=== PATIENT | female | born 1955 | race Caucasian/White ===

== ENCOUNTER 2016-10-24 21:28 | Emergency (ER) | payer OTHER ==
[2016-10-24 21:35] VITALS: BMI 14.8
--- NOTE | 2016-10-24 21:57 | DR.GENAD ---
HPI - PCP Primary Care Physician: CHRISTI - HPI Comment HPI Comment: PATIENT RAN OUT OF PORTABLE OXYGEN. INCREASING SOB. SHE IS ALSO BEING COUGHING AND WEAK. NO FEVER. WORSE TONIGHT. HER BROTHER WAS CONCERN AND BROUGHT HER TO ED. HER RELATIVES ARE OUT OF TOWN. SHE LIVES ALONE. - Complaint/Symptoms Chief Complaint Doctors Comments: INCREASING SOB TODAY AFTER RUNNING OUT OF PORTABLE OXYGEN. Chief Complaint:: SOB - Nurses notes reviewed Nurses Notes Review: Yes - Source History Provided: Patient - Mode of Arrival Mode of Arrival: Ambulatory - Timing Onset of Chief Complaint: 10/24/16 Came on: Suddenly - Duration Duration: Constant Duration: Days - Severity Severity: Moderate PMH - PMH Past Medical History: Yes Past Medical History: Angina, Anxiety, COPD, Depression, Dyslipidemia, Hypertension, [place] Past Surgical History: Yes Surgical History: Appendectomy, Ortho Surgery Past Surgical History Comment: LEFTMELOEE - Family History History of Family Medical Conditions: Yes Family Medical History: Coronary Artery Disease, Hypertension - Social History Does patient currently use any type of tobacco product: Yes Have you used tobacco products in the last 12 months: Yes Type of Tobacco Use: Cigarettes Does any household member use tobacco: No Alcohol Use: None Do you use any recreational Drugs:: No Lives With: Family Lives Where: Home - infectious screening In the last 2 months have you had wt loss of >10#?: NO Have you had fever, night sweats or hemotysis?: No Have you traveled outside the country in the last 6 months?: No Isolation: Standard ROS - Review of Systems Constitutional: Weakness, Fatigue, Loss of Appetite. negative: Chills, Diaphoresis, Fever Eyes: negative: Eye Pain, Blurred Vision, Discharge, Photophobia, Diplopia ENTM: Nose Congestion. negative: Ear Pain, Nose Discharge, Throat Pain Respiratoy: Productive Cough, Short of Breath, Wheezing. negative: Hemoptysis Cardiovascular: Chest Pain. negative: Edema, Palpitations, Syncope Gastrointestinal/Abdominal: No Symptoms Reported. negative: Abdominal Pain, Constipation, Diarrhea, Nausea, Vomiting Genitourinary: No Symptoms Reported. negative: Dysuria, Frequency, Hematuria, Pain, Bleeding Neurological: Headache, Weakness, Dizziness Musculoskeletal: Muscle Pain Integumentary: Dryness, Rash (STASIS DERMATITIS) Hematologic/Lymphatic: Easy Bleeding, Easy Bruising Endocrine: No Symptoms Reported All Other Systems: Reviewed and Negative PE - Vital Signs Vitals: Temperature 98 F Pulse Rate [Left] 86 Pulse Rate 101 Respiratory Rate 20 Blood Pressure [Left Arm] 131/66 Blood Pressure [Right Arm] 125/60 Blood Pressure 143/83 O2 Sat by Pulse Oximetry 99 - General Limitations: No Limitations General Appearance: Alert - Head Head Exam: Normal Inspection - Eyes Eye exam: Normal Appearance - ENT ENT Exam: Normal External Ear Exam External Ear Exam: Normal External Inspection TM/Canal Exam: Bilateral Normal Nose Exam: Normal Nose Exam Mouth Exam: Normal Inspection Throat Exam: Normal Inspection - Neck Neck Exam: Normal Inspection - Chest Chest Inspection: Symmetric Chest Wall Rise - Respiratory Respiratory Exam: Accessory Muscle Use, Prolonged Expiratory Phase, Respiratory Distress Respiratory Exam: Bilateral Wheezing, Bilateral Rhonchi, Upper Wheezing, Upper Rhonchi, Lower Wheezing, Lower Rhonchi - Cardiovascular Cardiovascular Exam: Regular Rate, Normal Rhythm, Normal Heart Sounds - Abdominal Exam Abdominal Exam: Normal Bowel Sounds, Soft. negative: Tenderness - Extremities Extremities Exam: Full ROM, Normal Capillary Refill. negative: Tenderness, Calf Tenderness - Back Back Exam: Paraspinal Tenderness - Neurologic Neurological Exam: Alert, Oriented X3, CN II-XII Intact, Normal Gait, Reflexes Normal. negative: Motor Sensory Deficit - Psychiatric Psychiatric Exam: Anxious - Skin Skin Exam: Dry, Diaphoresis MDM - Additional Information Additional Information Obtained From: Family - Differential Diagnosis Differential Diagnosis: ACUTE EXACERBATION OF COPD WITH BRONCHITIS, HYPOXIA, O2 DEPENDENT Course - Treatment Treatment: SEE ORDERS. NEB TREATMENT AND SOLUMEDROL IN ED WITH SUPPLEMENTARY OXYGEN. - Reevaluation 1st: Improved (PATIENT IMPROVING ON OXYGEN AND MEDS IN ED. ) - Education/Counseling Education/Counseling: Patient, Family, Education Educated On: Treatment, Diagnosis ROR - Labs Reviewed Laboratory Results Reviewed?: Yes Result Diagrams: 10/24/16 22:20 10/24/16 22:20 Laboratory: WBC 9.6 X10^3/uL (3.6-10.0) 10/24/16 22:20 RBC 3.43 X10^6/uL (3.5-5.4) L 10/24/16 22:20 Hgb 10.5 g/dL (12.0-16.0) L 10/24/16 22:20 Hct 30.9 % (36.0-47.0) L 10/24/16 22:20 MCV 90.0 fL (80.0-100.0) 10/24/16 22:20 MCH 30.7 pg (27.0-34.0) 10/24/16 22:20 MCHC 34.1 g/dL (33.0-35.0) 10/24/16 22:20 RDW 13.7 % (11.6-16.5) 10/24/16 22:20 Plt Count 276 X10^3/uL (150.0-450.0) 10/24/16 22:20 MPV 7.3 fL (7.4-11.0) L 10/24/16 22:20 Neut % 63.2 % (42.0-75.0) 10/24/16 22: Lymph % 22.5 % (21.0-51.0) 10/24/16 22:20 Sequoyah % 10.0 % (0.0-13.0) 10/24/16 22:20 Eos % 3.7 % (0.9-2.9) H 10/24/16 22:20 Baso % 0.6 % (0.2-1.0) 10/24/16 22:20 Neut # 6.1 x10^3/uL (2.2-4.8) H 10/24/16 22:20 Lymph # 2.2 X10^3/uL (1.3-2.9) 10/24/16 22:20 Sequoyah # 1.0 x10^3/uL (0.3-0.8) H 10/24/16 22:20 Eos # 0.4 x10^3/uL (0.0-0.2) H 10/24/16 22:20 Baso # 0.1 X10^3/uL (0.0-0.1) 10/24/16 22:20 Absolute Nucleated RBC 0.0 /100WBC 10/24/16 22:20 Sodium 143 mmol/L (136-145) 10/24/16 22:20 Corrected Sodium TNP 10/24/16 22:20 Potassium 3.9 mmol/L (3.5-5.1) 10/24/16 22:20 Chloride 104 mmol/L (98-107) 10/24/16 22:20 Carbon Dioxide 38.0 mmol/L (21-32) H 10/24/16 22:20 BUN 8 mg/dL (7-18) 10/24/16 22:20 Creatinine 0.66 mg/dL (0.55-1.02) 10/24/16 22:20 Est GFR (MDRD) Af Amer > 60 (>60) 10/24/16 22:20 Est GFR (MDRD) Non-Af > 60 (>60) 10/24/16 22:20 Glucose 98 mg/dL (65-99) 10/24/16 22:20 Calcium 7.4 mg/dL (8.5-10.1) L 10/24/16 22:20 Corrected Calcium 8.4 mg/dL (8.5-10.1) L 10/24/16 22:20 Total Bilirubin 0.10 mg/dL (0.2-1.0) L 10/24/16 22:20 AST 18 Units/L (15-37) 10/24/16 22:20 ALT 14 Units/L (12-78) 10/24/16 22:20 Alkaline Phosphatase 68 Units/L (46-116) 10/24/16 22:20 Creatine Kinase 39 Units/L (26-192) 10/24/16 22:20 CK-MB (CK-2) 1.4 ng/mL (0-4.0) 10/24/16 22:20 CK/CKMB % Calc 3.6 % (<4) 10/24/16 22:20 Troponin I < 0.02 ng/mL (0-1.5) 10/24/16 22:20 B-Natriuretic Peptide 158 pg/mL (0-79) H 10/24/16 22:20 Total Protein 6.3 g/dL (6.4-8.2) L 10/24/16 22:20 Albumin 2.8 g/dL (3.4-5.0) L 10/24/16 22:20 Globulin 3.5 g/dL (2.5-4.5) 10/24/16 22:20 Albumin/Globulin Ratio 0.8 Ratio (1.1-2.1) L 10/24/16 22:20 - XRAY XRAY Interpreted by: Radiologist XRAY Findings: REPORT DISCUSS WITH PATIENT. - EKG Rhythm: NSR (EKG NOTED.) - Diagnosis Discharge Problem: Acute exacerbation of chronic obstructive pulmonary disease, Bronchitis, Respiratory distress - Discharge Plan Disposition: 01 HOME, SELF-CARE Condition: Stable - Follow ups/Referrals Follow ups/Referrals: JOSAFAT BARRAZA [Primary Care Provider] - 3 days - Instructions Instructions: Shortness of Breath, [id number], Hypoxemia Additional Instructions: return to ed if worse.
[2016-10-24 22:35] LABS: BASOPHILS # (AUTO) 0.1 X10^3/uL (0.0-0.1); BASOPHILS % (AUTO) 0.6 % (0.2-1.0); EOSINOPHILS # (AUTO) 0.4 x10^3/uL (0.0-0.2); EOSINOPHILS % (AUTO) 3.7 % (0.9-2.9); HEMATOCRIT 30.9 % (36.0-47.0); HEMOGLOBIN 10.5 g/dL (12.0-16.0); LYMPHOCYTES # (AUTO) 2.2 X10^3/uL (1.3-2.9); LYMPHOCYTES % (AUTO) 22.5 % (21.0-51.0); MEAN CORPUSCULAR HEMOGLOBIN 30.7 pg (27.0-34.0); MEAN CORPUSCULAR HGB CONC 34.1 g/dL (33.0-35.0); MEAN PLATELET VOLUME 7.3 fL (7.4-11.0); NEUTROPHILS # (AUTO) 6.1 x10^3/uL (2.2-4.8); NEUTROPHILS % (AUTO) 63.2 % (42.0-75.0); PLATELET COUNT 276 X10^3/uL (150.0-450.0); RED BLOOD COUNT 3.43 X10^6/uL (3.5-5.4); RED CELL DISTRIBUTION WIDTH 13.7 % (11.6-16.5); WHITE BLOOD COUNT 9.6 X10^3/uL (3.6-10.0)
[2016-10-24 22:49] LABS: BLOOD UREA NITROGEN 8 mg/dL (7-18); CALCIUM 7.4 mg/dL (8.5-10.1); CHLORIDE 104 mmol/L (98-107); CREATININE 0.66 mg/dL (0.55-1.02); GLUCOSE 98 mg/dL (65-99); SODIUM 143 mmol/L (136-145); TROPONIN I < 0.02 ng/mL (0-1.5); eGFR BLACK RACES > 60 (>60); eGFR NON BLACK RACES > 60 (>60)
[2016-10-24 22:51] LABS: B-TYPE NATRIURETIC PEPTIDE 158 pg/mL (0-79)
[2016-10-24 22:53] LABS: ALANINE AMINOTRANSFERASE 14 Units/L (12-78); ALBUMIN 2.8 g/dL (3.4-5.0); ALKALINE PHOSPHATASE 68 Units/L (46-116); ASPARTATE AMINO TRANSFERASE 18 Units/L (15-37); CKMB % 3.6 % (<4); COR CA(FOR HYPOALB) 8.4 mg/dL (8.5-10.1); CREATINE KINASE 39 Units/L (26-192); CREATINE KINASE MB 1.4 ng/mL (0-4.0); TOTAL PROTEIN 6.3 g/dL (6.4-8.2)
[2016-10-24] MEDS ORDERED: SOLU-Medrol 125 MG VIAL IVP ONE (23:51)
[2016-10-24] MEDS ORDERED: ROCEPHIN VIAL 1 GM 1 GM in NS 50 ML IV + SPIKE MINIBAG* 50 ML IV ONE (23:52)
[2016-10-24] MEDS ORDERED: SOLU-Medrol 125 MG VIAL ONE (23:53)
[2016-10-24] MEDS ORDERED: ROCEPHIN VIAL 1 GM ONE (23:54)
[2016-10-24] MEDS ORDERED: NS 50 ML IV + SPIKE MINIBAG* 50 ML IV ONE (23:55)
--- NOTE | 2016-10-25 00:12 | RAD ---
Chest AP portable Indication: Chest pain. Comparison: October 04, 2016. Findings: AICD lead projects as expected. There is no pneumothorax, effusion or consolidation. Lungs are hyperinflated. Heart size is prominent. Impression: No new acute chest process or change from the prior. Reported By:
[2016-10-25] MEDS ORDERED: ROCEPHIN VIAL 1 GM ONE (01:29)
[2016-10-25] MEDS ORDERED: XYLOCAINE 2 % (PLAIN) ONE (01:33)
[2016-10-25] MEDS ORDERED: ROCEPHIN VIAL 1 GM IM ONE (01:37)
[2016-10-25] MEDS ORDERED: SOLU-Medrol 125 MG VIAL IM ONE (01:37)
[2016-10-25 06:12] VITALS: BP 125/60
== END 2016-10-25 11:46 | disposition home or self-care (01) ==
LOC: ER 21:40
DX: J44.1 Chronic obstructive pulmonary disease with (acute) exacerbation (principal); J40 Bronchitis, not specified as acute or chronic; R06.00 Dyspnea, unspecified
CPT/HCPCS: 36415; 71010; 80053; 82550; 82553; 83880; 84484; 85025; 93005; 93010; 96372; 99282; A4222; J0696; J2001; J2930

== ENCOUNTER 2016-11-01 12:40 | Emergency (ER) | payer OTHER ==
[2016-11-01 12:50] VITALS: BP 109/68; BMI 15.5
--- NOTE | 2016-11-01 13:09 | DR.GENAD ---
HPI - PCP Primary Care Physician: CHRISTI TANG - Complaint/Symptoms Chief Complaint Doctors Comments: Patient admits to a history of passing out for the past three to four years. They have found no etiology as to cause. Today hit head left side with abrasion. Noticed blood on scalp. Chief Complaint:: PT C/O FALLING AND HITTING THE LEFT SIDE OF HEAD TODAY AND THAT SHE PASSED OUT AND THAT SHE HAS NOT EATEN IN THE PAST 3 DAYS.. Self Treatment fo Chief Complaint: PT STATES " I HAVE PASSING OUT SPELLS". PT IS HOME 02 BUT SHE IS NOT WEARING IT.. - Source History Provided: Patient - Mode of Arrival Mode of Arrival: Ambulatory - Timing Onset of Chief Complaint: 10/29/16 PMH - PMH Past Medical History: Yes Past Medical History: Angina, Anxiety, COPD, Depression, Dyslipidemia, Hypertension, [place] Past Surgical History: Yes Surgical History: Appendectomy, Ortho Surgery - Family History History of Family Medical Conditions: Yes Family Medical History: Coronary Artery Disease, Hypertension - Social History Does patient currently use any type of tobacco product: Yes Have you used tobacco products in the last 12 months: Yes How many years tobacco product used: 45 Does any household member use tobacco: No Alcohol Use: None Do you use any recreational Drugs:: No Lives With: Alone Lives Where: Home - infectious screening In the last 2 months have you had wt loss of >10#?: NO Have you had fever, night sweats or hemotysis?: No Have you traveled outside the country in the last 6 months?: No Isolation: Standard ROS - Review of Systems Eyes: No Symptoms Reported ENTM: No Symptoms Reported Respiratoy: No Symptoms Reported Cardiovascular: No Symptoms Reported Gastrointestinal/Abdominal: No Symptoms Reported Genitourinary: No Symptoms Reported Neurological: No Symptoms Reported Musculoskeletal: No Symptoms Reported Integumentary: No Symptoms Reported Hematologic/Lymphatic: No Symptoms Reported Endocrine: No Symptoms Reported Psychiatric: No Symptoms Reported All Other Systems: Reviewed and Negative PE - Vital Signs Vitals: Temperature 97.4 F Pulse Rate 67 Respiratory Rate 22 Blood Pressure [Left Arm] 131/66 Blood Pressure [Right Arm] 125/60 Blood Pressure 109/68 O2 Sat by Pulse Oximetry 100 - General Limitations: No Limitations General Appearance: Alert - Head Head Exam: Normal Inspection, Atraumatic - Eyes Eye exam: Normal Appearance, PERRL, EOMI - ENT ENT Exam: Normal Exam External Ear Exam: Normal External Inspection TM/Canal Exam: Bilateral Normal Nose Exam: Normal Nose Exam Mouth Exam: Normal Inspection Throat Exam: Normal Inspection - Neck Neck Exam: Normal Inspection - Chest Chest Inspection: Normal Inspection - Respiratory Respiratory Exam: Normal Lung Sounds Bilat Respiratory Exam: Bilateral Clear to Auscultation - Cardiovascular Cardiovascular Exam: Regular Rate, Normal Rhythm - Abdominal Exam Abdominal Exam: Normal Inspection Abdominal Tenderness: negative: RUQ, RLQ, LUQ, LLQ, Epigastrium, Suprapubic, Diffuse, Mild, Moderate, Severe, Other - Extremities Extremities Exam: Normal Inspection - Back Back Exam: Normal Inspection - Neurologic Neurological Exam: Alert, Oriented X3, CN II-XII Intact - Psychiatric Psychiatric Exam: Normal Affect - Skin Skin Exam: Warm, Dry, Intact ROR - XRAY XRAY Interpreted by: Radiologist - Diagnosis Discharge Problem: Acute head trauma Qualifiers: Encounter type: initial encounter Qualified Code(s): S09.90XA - Unspecified injury of head, initial encounter - Discharge Plan Condition: Stable - Follow ups/Referrals Follow ups/Referrals: JOSAFAT BARRAZA [Primary Care Provider] - 3 days - Instructions
[2016-11-01] MEDS ORDERED: DUONEB 0.5 MG/3 MG ONE (13:31)
--- NOTE | 2016-11-01 13:45 | CT ---
CT brain without contrast Indication: Fall with left temporal trauma and swelling Comparison: None available Technique: Multiple axial images of the brain were obtained from the skull base to the vertex without administr ation of IV contrast. Coronal and sagittal images were also provided. Radiation dose reduction techniques were performed utilizing adjustment for MA/kVP based on patient body size. Findings: Generalized cerebral atrophy with bilateral periventricular deep white matter hypoattenuation is non specific however sequela of chronic microvascular ischemic disease. No acute intraparenchymal hemorrhage or mass can be identified. No extra-axial fluid collections ar e seen. No alteration in the attenuation of the brain parenchyma can be identified to suggest acute or subacute ischemic change. The ventricular system is symmetric and nondilated. The extracranial structures are grossly unremarkable. IMPRESSION: 1. No acute intracranial process is identified. Reported By:
== END 2016-11-01 14:23 | disposition home or self-care (01) ==
LOC: ER 12:55
DX: S09.8XXA Other specified injuries of head, initial encounter (principal); W19.XXXA Unspecified fall, initial encounter; Y92.9 Unspecified place or not applicable
CPT/HCPCS: 70450; 99282; J7620

== ENCOUNTER 2017-03-03 15:03 | Inpatient (IN) | payer OTHER ==
[2017-03-03] MEDS ORDERED: ZOFRAN INJ 4 MG VIAL IVP PRN (16:04)
[2017-03-03] MEDS ORDERED: TUSSIONEX PENNKINETIC SUSP PO PRN (16:04)
[2017-03-03] MEDS ORDERED: NS 1/2 1000 ML IV 1,000 ML IV ONE (16:34)
[2017-03-03] MEDS ORDERED: SALINE 3% 15 ML NEB TX ONE (16:51)
[2017-03-03 17:11] LABS: ABG BASE EXCESS 13.5 mmol/L (-2.0-2.0)
[2017-03-03 17:12] LABS: ABG HCO3 38.3 mmol/L (22-26)
[2017-03-03 17:13] LABS: ABG ALLEN TEST POS
--- NOTE | 2017-03-03 17:17 | RAD ---
Examination: PA chest History: SOB, pneumonia Comparison reference 10/24/2016 Findings: Frontal view of the chest demonstrates normal heart size with single pole AICD. The lungs are clear. There is no evidence for pneumonia, pleural fluid or other acute process. The pacing gener ator device partly obscures portions of the left upper lung. Impression: No acute disease demonstrated. Reported By:
[2017-03-03 17:19] LABS: BASOPHILS # (AUTO) 0.1 X10^3/uL (0.0-0.1); BASOPHILS % (AUTO) 0.5 % (0.2-1.0); EOSINOPHILS # (AUTO) 0.3 x10^3/uL (0.0-0.2); EOSINOPHILS % (AUTO) 2.4 % (0.9-2.9); HEMATOCRIT 44.1 % (36.0-47.0); HEMOGLOBIN 15.1 g/dL (12.0-16.0); LYMPHOCYTES # (AUTO) 4.3 X10^3/uL (1.3-2.9); LYMPHOCYTES % (AUTO) 36.9 % (21.0-51.0); MEAN CORPUSCULAR HGB CONC 34.2 g/dL (33.0-35.0); MEAN CORPUSCULAR VOLUME 90.6 fL (80.0-100.0); MONOCYTES # (AUTO) 0.9 x10^3/uL (0.3-0.8); MONOCYTES % (AUTO) 7.8 % (0.0-13.0); NEUTROPHILS % (AUTO) 52.4 % (42.0-75.0); PLATELET COUNT 306 X10^3/uL (150.0-450.0); RED BLOOD COUNT 4.86 X10^6/uL (3.5-5.4); WHITE BLOOD COUNT 11.5 X10^3/uL (3.6-10.0)
[2017-03-03 17:23] LABS: ALANINE AMINOTRANSFERASE 13 Units/L (12-78); ALBUMIN 4.2 g/dL (3.4-5.0); ALKALINE PHOSPHATASE 72 Units/L (46-116); ASPARTATE AMINO TRANSFERASE 24 Units/L (15-37); BLOOD UREA NITROGEN 12 mg/dL (7-18); CALCIUM 8.9 mg/dL (8.5-10.1); CHLORIDE 92 mmol/L (98-107); CREATININE 0.76 mg/dL (0.55-1.02); SODIUM 135 mmol/L (136-145); TOTAL PROTEIN 8.2 g/dL (6.4-8.2); eGFR BLACK RACES > 60 (>60); eGFR NON BLACK RACES > 60 (>60)
[2017-03-03] MEDS: NS 1/2 1000 ML IV 1,000 ML IV SCH (17:30)
[2017-03-03] MEDS: SOLU-Medrol 125 MG VIAL IVP SCH ×2 (17:31→22:28)
[2017-03-03] MEDS: ROBITUSSIN DM PO SCH ×2 (17:31→20:31)
[2017-03-03 17:40] VITALS: BMI 16.6
[2017-03-03] MEDS ORDERED: POTASSIUM CHLORIDE LIQ 20 MEQ UDC PO PRN (17:44)
[2017-03-03] MEDS ORDERED: K-LYTE EFFERVESCENT PO PRN (17:44)
[2017-03-03] MEDS ORDERED: MAG-OX TAB PO PRN (17:44)
[2017-03-03] MEDS ORDERED: K-RIDER 10 MEQ/NS 100 ML 10 MEQ/100 ML BAG IV PRN (17:44)
[2017-03-03] MEDS ORDERED: MAGNESIUM SULFATE 1 GM/100 mL PREMIX 1 GM/100 ML BAG IV PRN (17:44)
[2017-03-03] MEDS ORDERED: POTASSIUM CHL 40 MEQ/NS 0.45% 500 ML IV PRN (17:44)
[2017-03-03] MEDS ORDERED: POTASSIUM CHL 60 MEQ/NS 0.45% 500 ML IV PRN (17:44)
[2017-03-03] MEDS: DUONEB 0.5 MG/3 MG NEB SCH ×3 (17:45→21:50)
--- NOTE | 2017-03-03 17:57 | DR.H&P ---
H&P - History & Physical for Day of: H&P Date: 03/03/17 - Chief Complaint Chief Complaint: sob, ccc, wheezing - Allergies Allergies/Adverse Reactions: Allergies Allergy/AdvReac Type Severity Reaction Status Date / Time No Known Drug Allergies Allergy Verified 03/03/17 16:04 - History of Present Illness History of Present Illness: patient is a 61-year-old white female who was a direct admit from Dr. Delarosa's office with COPD exacerbation with acute bronchitis, failed outpatient treatment. Patient had previously taken oral antibiotics as well as IM Rocephin and IM steroids, respiratory General name's without improvement. Patient's family reports she has had weight loss and very poor appetite over the last 1-2 weeks. Patient states she is weak all over and feels that she could . Patient has past medical history of emphysema, CHF, COPD, coronary artery disease, blood clots, hypertension, cervical spine degenerative disc disease long-term anticoagulant therapy and anxiety. Plan to admit patient using pneumonia protocol, blood sputum cultures on admission, respiratory care, ABG on admission, supplemental O2, IV antibiotic therapy. - Past Medical History Past Medical History: Angina, Anxiety, COPD, Depression, Dyslipidemia, Hypertension, [place] - Past Surgical History Surgical History: Angioplasty/Stents, Appendectomy, Ortho Surgery - Family History Family Medical History: Coronary Artery Disease, Hypertension - Social History Does patient currently use any type of tobacco product: Yes Have you used tobacco products in the last 12 months: Yes Type of Tobacco Use: Cigarettes How many years tobacco product used: 50 Does any household member use tobacco: Yes Alcohol Use: None Drug Use: None - Medications Home Medications: Albuterol Neb 2.5MG/ 3Ml [ALBUTEROL NEB 2.5MG/ 3ML *] 1 nebule INH Q4H PRN 03/03 [History Confirmed 03/03/17] Morphine Sulfate Ext Rel [M.S. CONTIN 15 mg (Extended Release) *] 1 tab PO DAILY PRN 03/03/17 [History Confirmed 03/03/17] Sacubitril/Valsartan [Entresto 24 mg-26 mg Tablet] 1 tab PO BID 03/03/17 [ History Confirmed 03/03/17] - Review of Systems Constitutional: Weakness Eyes: No Symptoms Reported ENT: No Symptoms Reported Respiratory: Cough, Shortness of Breath, SOB with Excertion, Sputum Cardiovascular: Chest Pain, Light Headedness Gastrointestinal: No Symptoms Reported Genitourinary: No Symptoms Reported Musculoskeletal: Back Pain Skin: No Symptoms Reported - Physical Exam Vital Signs: Temperature 99.0 F Pulse Rate [Left] 83 Respiratory Rate 17 Blood Pressure [Left Arm] 100/53 Blood Pressure [Right Arm] 125/60 Blood Pressure 109/68 O2 Sat by Pulse Oximetry 100 Oriented: Normal Eyes: Normal Ear: Normal Nose: Normal Throat: Normal Respiratory: Diminished Throughout, Rhonchi Throughout Cardiovascular: Normal, Other (pacer, defib) : Normal Auscultation: Bowel Sounds: Normal Palpation: Normal Tenderness: Normal Skin: Normal Musculoskeletal: Back:Lumbar, Tender (cervical spine), Sensory Deficit ( bilateral hands,) Psychiatric: Anxiety Affect: Anxious Speech Pattern: Clear, Appropriate - Assessment/Plan (1) Acute exacerbation of chronic obstructive pulmonary disease Status: Acute Plan: admit, pneumonia protocol, IV antibiotic therapy, IV Solu-Medrol, respiratory therapy, ABG on admission, blood and sputum cultures, chest x-ray on admission, strict I's and O's, blood pressure monitoring, regular diet, CT of the chest every morning with contrast, gentle hydration. Resume home medication. (2) CAD (coronary artery disease) Status: Chronic (3) CHF (congestive heart failure) Status: Chronic (4) COPD (chronic obstructive pulmonary disease) Qualifiers: COPD type: COPD with acute exacerbation Qualified Code(s): J44.1 - Chronic obstructive pulmonary disease with (acute) exacerbation Status: Chronic (5) Cardiac defibrillator in place Status: Chronic (6) History of CVA (cerebrovascular accident) Status: Chronic (7) Hypertension Qualifiers: Hypertension type: essential hypertension Qualified Code(s): I10 - Essential (primary) hypertension Status: Chronic
[2017-03-03] MEDS: ZITHROMAX INJ 500 MG VIAL 500 MG in NS 250 ML IV 250 ML IV SCH (18:05)
[2017-03-03] MEDS ORDERED: PROVENTIL NEB TX 0.083% 2.5MG/ 3ML NEB PRN (18:09)
[2017-03-03] MEDS ORDERED: NITROSTAT SL PRN (18:09)
[2017-03-03] MEDS ORDERED: PHARMACY CONSULT - DOSE _____ XX SCH (19:00)
[2017-03-03] MEDS: PEPCID 20 MG IV PREMIX* 20 MG/50 ML BAG IV SCH (20:30)
[2017-03-03] MEDS: M.S. CONTIN 15 MG (EXTENDED RELEASE) PO PRN (20:31)
[2017-03-03] MEDS: LASIX PO SCH ×2 (20:32→22:28)
[2017-03-03] MEDS: XANAX PO PRN (20:32)
[2017-03-03] MEDS: ENTRESTO 24/26 MG TAB PO SCH (20:34)
[2017-03-03] MEDS: COREG TAB 6.25 MG PO SCH (20:35)
[2017-03-03] MEDS: ISOSORBIDE DINITRATE PO SCH (20:35)
[2017-03-03] MEDS: ZOCOR TAB 40 MG PO SCH (20:36)
[2017-03-03] MEDS: COUMADIN TAB 3 MG PO SCH (21:48)
[2017-03-03] MEDS: ZOSYN VIAL 3.375 GM 3.375 GM in NS 100 ML IV 100 ML IV SCH (21:48)
[2017-03-03] MEDS: NEURONTIN CAP 300 MG PO SCH (21:48)
[2017-03-03] MEDS ORDERED: ZOSYN VIAL 4.5 GM 4.5 GM in NS 100 ML IV + SPIKE MINIBAG* 100 ML IV SCH (22:00)
[2017-03-04] MEDS: DUONEB 0.5 MG/3 MG NEB SCH ×6 (00:49→20:45)
[2017-03-04] MEDS: MORPHINE SULFATE INJ 2 MG INJ IVP PRN ×2 (04:11→09:53)
[2017-03-04 04:40] LABS: BASOPHILS % (AUTO) 0.2 % (0.2-1.0); EOSINOPHILS % (AUTO) 0.1 % (0.9-2.9); HEMATOCRIT 38.5 % (36.0-47.0); HEMOGLOBIN 13.3 g/dL (12.0-16.0); LYMPHOCYTES # (AUTO) 1.4 X10^3/uL (1.3-2.9); LYMPHOCYTES % (AUTO) 24.3 % (21.0-51.0); MEAN CORPUSCULAR HEMOGLOBIN 30.7 pg (27.0-34.0); MEAN CORPUSCULAR HGB CONC 34.4 g/dL (33.0-35.0); MEAN CORPUSCULAR VOLUME 89.2 fL (80.0-100.0); MEAN PLATELET VOLUME 8.4 fL (7.4-11.0); MONOCYTES # (AUTO) 0.1 x10^3/uL (0.3-0.8); MONOCYTES % (AUTO) 1.1 % (0.0-13.0); NEUTROPHILS # (AUTO) 4.3 x10^3/uL (2.2-4.8); NEUTROPHILS % (AUTO) 74.3 % (42.0-75.0); PLATELET COUNT 331 X10^3/uL (150.0-450.0); RED BLOOD COUNT 4.31 X10^6/uL (3.5-5.4); RED CELL DISTRIBUTION WIDTH 13.3 % (11.6-16.5); WHITE BLOOD COUNT 5.8 X10^3/uL (3.6-10.0)
[2017-03-04 04:55] LABS: ALANINE AMINOTRANSFERASE 11 Units/L (12-78); ALBUMIN 3.5 g/dL (3.4-5.0); ALKALINE PHOSPHATASE 59 Units/L (46-116); ASPARTATE AMINO TRANSFERASE 20 Units/L (15-37); BLOOD UREA NITROGEN 10 mg/dL (7-18); CALCIUM 8.2 mg/dL (8.5-10.1); CARBON DIOXIDE 31.1 mmol/L (21-32); CHLORIDE 99 mmol/L (98-107); COR NA(FOR HYPERGLY) 141 mmol/L (136-145); CREATININE 0.71 mg/dL (0.55-1.02); SODIUM 140 mmol/L (136-145); TOTAL PROTEIN 7.1 g/dL (6.4-8.2); eGFR BLACK RACES > 60 (>60); eGFR NON BLACK RACES > 60 (>60)
[2017-03-04] MEDS: ZOSYN VIAL 3.375 GM 3.375 GM in NS 100 ML IV 100 ML IV SCH ×3 (06:18→22:35)
[2017-03-04] MEDS: SOLU-Medrol 125 MG VIAL IVP SCH ×3 (06:19→22:36)
[2017-03-04] MEDS: NS 1/2 1000 ML IV 1,000 ML IV SCH (06:20)
[2017-03-04] MEDS: NEURONTIN CAP 300 MG PO SCH ×3 (06:20→22:35)
[2017-03-04] MEDS: COREG TAB 6.25 MG PO SCH ×2 (09:22→22:46)
[2017-03-04] MEDS: LASIX PO SCH ×2 (09:22→22:44)
[2017-03-04] MEDS: PEPCID 20 MG IV PREMIX* 20 MG/50 ML BAG IV SCH ×2 (09:22→22:35)
[2017-03-04] MEDS: ISOSORBIDE DINITRATE PO SCH ×2 (09:22→22:47)
[2017-03-04] MEDS: ENTRESTO 24/26 MG TAB PO SCH ×2 (09:22→22:46)
[2017-03-04] MEDS: ROBITUSSIN DM PO SCH ×4 (09:23→22:36)
[2017-03-04] MEDS: ZITHROMAX INJ 500 MG VIAL 500 MG in NS 250 ML IV 250 ML IV SCH (09:23)
[2017-03-04] MEDS: PLAVIX PO SCH (09:23)
--- NOTE | 2017-03-04 12:49 | CT ---
CT CHEST WITH IV CONTRAST HISTORY: Shortness of breath. History of clot. Comparison: Chest PE protocol 10/04/2016 Technique: Multiple axial images of the chest were obtained from the thoracic inlet to the upper abdo men after the administration of IV contrast.Dose reduction techniques including Automated Exposure Co ntrol (AEC) and adjustment of mA and kV were utlized. Findings: The heart is normal in size. No pericardial effusion. No suspicious mediastinal or axillary lymph no aaron. Although not optimized to detect pulmonary embolism, no large central pulmonary emboli are seen. No focal consolidations, pleural effusions or pneumothorax. Severe emphysema which is unchanged from prior Airways are patent. No suspicious pulmonary nodules or masses. Severe aortic vascular disease. The ascending aorta measures 3.5 cm maximally. The descending aorta h as multiple regions of stenosis with a luminal diameter of 7 mm just below the level of the renal art eries (series 4, image 59 and luminal diameter of 6 mm just below the origin of the ILENE on series 4, image 71. No aggressive osseous lesions. IMPRESSION: 1. Severe emphysema without acute findings. 2. Severe aortic vascular disease with multiple levels of aortic stenosis as described above. 3. Borderline aneurysmal ascending aorta which is unchanged from prior. Reported By:
[2017-03-04] MEDS: M.S. CONTIN 15 MG (EXTENDED RELEASE) PO PRN (13:34)
[2017-03-04] MEDS: ZOCOR TAB 40 MG PO SCH (22:35)
[2017-03-04] MEDS: COUMADIN TAB 3 MG PO SCH (22:46)
[2017-03-05] MEDS: DUONEB 0.5 MG/3 MG NEB SCH ×5 (00:58→16:51)
[2017-03-05] MEDS: PERCOCET TAB 5/325 MG PO PRN ×2 (01:53→08:26)
[2017-03-05] MEDS: ROXICODONE TAB 5 MG PO PRN ×2 (01:54→08:27)
[2017-03-05] MEDS: NS 1/2 1000 ML IV 1,000 ML IV SCH (03:34)
[2017-03-05] MEDS: NEURONTIN CAP 300 MG PO SCH ×2 (06:00→13:38)
[2017-03-05] MEDS: ZOSYN VIAL 3.375 GM 3.375 GM in NS 100 ML IV 100 ML IV SCH ×2 (06:00→13:39)
[2017-03-05] MEDS: SOLU-Medrol 125 MG VIAL IVP SCH ×2 (06:00→13:39)
[2017-03-05 06:07] LABS: BASOPHILS % (AUTO) 0.1 % (0.2-1.0); HEMATOCRIT 33.2 % (36.0-47.0); HEMOGLOBIN 11.2 g/dL (12.0-16.0); LYMPHOCYTES # (AUTO) 1.1 X10^3/uL (1.3-2.9); LYMPHOCYTES % (AUTO) 6.3 % (21.0-51.0); MEAN CORPUSCULAR HEMOGLOBIN 30.4 pg (27.0-34.0); MEAN CORPUSCULAR HGB CONC 33.9 g/dL (33.0-35.0); MEAN CORPUSCULAR VOLUME 89.9 fL (80.0-100.0); MEAN PLATELET VOLUME 8.2 fL (7.4-11.0); MONOCYTES # (AUTO) 0.4 x10^3/uL (0.3-0.8); MONOCYTES % (AUTO) 2.3 % (0.0-13.0); NEUTROPHILS # (AUTO) 15.4 x10^3/uL (2.2-4.8); NEUTROPHILS % (AUTO) 91.3 % (42.0-75.0); PLATELET COUNT 280 X10^3/uL (150.0-450.0); RED BLOOD COUNT 3.69 X10^6/uL (3.5-5.4); RED CELL DISTRIBUTION WIDTH 13.4 % (11.6-16.5); WHITE BLOOD COUNT 16.8 X10^3/uL (3.6-10.0)
[2017-03-05 06:29] LABS: ALANINE AMINOTRANSFERASE 10 Units/L (12-78); ALBUMIN 2.8 g/dL (3.4-5.0); ALKALINE PHOSPHATASE 44 Units/L (46-116); ASPARTATE AMINO TRANSFERASE 18 Units/L (15-37); BLOOD UREA NITROGEN 12 mg/dL (7-18); CALCIUM 7.4 mg/dL (8.5-10.1); CARBON DIOXIDE 29.3 mmol/L (21-32); CHLORIDE 100 mmol/L (98-107); COR CA(FOR HYPOALB) 8.4 mg/dL (8.5-10.1); COR NA(FOR HYPERGLY) 138 mmol/L (136-145); SODIUM 137 mmol/L (136-145); TOTAL PROTEIN 5.8 g/dL (6.4-8.2); eGFR BLACK RACES > 60 (>60); eGFR NON BLACK RACES > 60 (>60)
[2017-03-05 07:00] LABS: PLATELET MORPHOLOGY COMMENT NORMAL (NORMAL)
[2017-03-05] MEDS ORDERED: NS 1/2 + KCL 20 MEQ/L 1,000 ML IV SCH (08:00)
[2017-03-05] MEDS: ISOSORBIDE DINITRATE PO SCH (08:16)
[2017-03-05] MEDS: COREG TAB 6.25 MG PO SCH (08:16)
[2017-03-05] MEDS: LASIX PO SCH (08:17)
[2017-03-05] MEDS: ENTRESTO 24/26 MG TAB PO SCH (08:27)
[2017-03-05] MEDS: ROBITUSSIN DM PO SCH ×3 (08:28→18:11)
[2017-03-05] MEDS: PEPCID 20 MG IV PREMIX* 20 MG/50 ML BAG IV SCH (08:28)
[2017-03-05] MEDS: PLAVIX PO SCH (08:37)
[2017-03-05] MEDS: XANAX PO PRN (11:40)
[2017-03-05] MEDS ORDERED: DUONEB 0.5 MG/3 MG ONE (12:48)
[2017-03-05 16:47] VITALS: BP 107/58
--- NOTE | 2017-03-06 06:43 | CT ---
History: Neck pain Study: CT of the cervical spine without contrast Comparison: CT cervical spine dated October 24, 2015 Findings: There is no interval change. There is normal alignment with mild C5-6 disc space narrowing and mild left C5-6 uncovertebral joint spurring. There is no fracture. The facets and spinous process es remain intact. The soft tissues are unremarkable. Impression: Unchanged mild C5-6 degenerative disc disease Reported By:
== END 2017-03-05 19:10 | disposition home or self-care (01) | DRG 192 ==
LOC: OBSVTOIN 15:03 → OBS 15:03
PROVIDERS: ADMIT Internal Medicine; ATTEND Internal Medicine
DX: J44.1 Chronic obstructive pulmonary disease with (acute) exacerbation (principal); E86.0 Dehydration; J20.8 Acute bronchitis due to other specified organisms; I25.10 Atherosclerotic heart disease of native coronary artery without angina pectoris; I50.9 Heart failure, unspecified; I10 Essential (primary) hypertension; Z99.81 Dependence on supplemental oxygen; R26.89 Other abnormalities of gait and mobility; Z95.810 Presence of automatic (implantable) cardiac defibrillator
CPT/HCPCS: 36415; 36600; 71010; 71260; 72125; 80053; 82803; 83735; 85025; 85610; 87040; 94640; 94760; A4222; J7030; S0028; J2270; J2543; J2930; J7620

== ENCOUNTER 2017-07-18 09:30 | Emergency (ER) | payer OTHER ==
[2017-07-18] MEDS ORDERED: ASPIRIN ONE (09:39)
[2017-07-18 09:45] VITALS: BP 144/79; BMI 16.8
[2017-07-18] MEDS ORDERED: DECADRON INJ IVP ONE (09:48)
[2017-07-18] MEDS ORDERED: BACTROBAN OINT TOP ONE (09:49)
[2017-07-18] MEDS ORDERED: MORPHINE SULFATE INJ 2 MG INJ IVP ONE ×2 (09:50→10:33)
[2017-07-18] MEDS ORDERED: ZOFRAN INJ 4 MG VIAL IVP ONE (09:52)
--- NOTE | 2017-07-18 09:53 | DR.BURN ---
HPI - Time Seen Time seen: 11:29 - PCP Primary Care Physician: EDISON - Complaints/Symptoms Chief Complaint:: ABARCA TO FACE AFTER PT WAS SMOKING AND O2 BLEW UP IN HER FACE. Was wearing O2 at the time (pt on cont O2) Self Treatment fo Chief Complaint: TOOK 7.5MG MORPHINE. AND PERCOCET EVP GENERAL COUNSEL - Source History Provided: Patient, Family Member - Mode of arrival Mode of Arrival: Wheelchair - Timing Onset of Chief Complaint: 07/18/17 Came on: Suddenly - Duration Duration: Since Onset - Context Burn Occured: Open Space Burn Percentage: <5% Has Patient had Tetanus Shot in the Past 5 Years?: No - Associated Signs and Symptoms Associated Signs and Symptoms: Facial Singeing, Shortness of Breath PMH - PMH Past Medical History: Yes Past Medical History: Angina, Anxiety, COPD, Depression, Dyslipidemia, Hypertension, [place] Past Surgical History: Yes Surgical History: Angioplasty/Stents, Appendectomy, Ortho Surgery - Family History History of Family Medical Conditions: Yes Family Medical History: Coronary Artery Disease, Hypertension - Social History Type of Tobacco Use: Cigarettes Alcohol Use: None Do you use any recreational Drugs:: No Lives With: Alone Lives Where: Home - infectious screening In the last 2 months have you had wt loss of >10#?: NO Have you had fever, night sweats or hemotysis?: No Have you traveled outside the country in the last 6 months?: No Isolation: Standard ROS - Review of Systems Respiratoy: Non-Productive Cough, Short of Breath Cardiovascular: No Symptoms Reported Gastrointestinal/Abdominal: No Symptoms Reported Genitourinary: No Symptoms Reported Neurological: No Symptoms Reported, Other (diffuse facial pain) Musculoskeletal: No Symptoms Reported Endocrine: Other (1st, 2nd deg abarca to face) Psychiatric: No Symptoms Reported All Other Systems: Reviewed and Negative PE - Vital Signs Vital Signs: Temp Pulse Resp BP BP BP Pulse Ox 07/18/17 09:35 97.6 F 111 H 13 144/79 86 L 03/05/17 16:00 107/58 107/58 03/05/17 04:00 88/53 - General Limitations: No Limitations General Appearance: Alert, In Distress - Head Head: Singed Hair - Eyes Singed Latta: Yes Eye: Bilateral: Normal Inspection, PERRL, EOMI - ENT Ear: Bilateral Normal Nose: Bilateral Singeing (both nares singed, blackened) Mouth: Right Normal, Bilateral Other (no soot seen in oropharynx) Throat: Normal - Neck Neck Exam: Normal Inspection, Full ROM, Trachea Midline - Chest Chest Inspection: Normal Inspection, Symmetric Chest Wall Rise - Respiratory Respiratory Exam: negative: Respiratory Distress Respiratory Exam: Bilateral Wheezing, Bilateral Rales, Bilateral Decreased Breath Sounds - Cardiovascular Cardiovascular Exam: Regular Rate, Normal Rhythm - Abdominal Exam Abdominal Exam: Normal Inspection, Normal Bowel Sounds, Soft - Extremities Extremities Exam: Normal Inspection, Full ROM. negative: Tenderness, Edema - Lower Extremities Neurovascular/Tendon Exam: Normal Capillary Refill Gait Exam: Observed and Normal - Neurological Neurological Exam: Alert, Oriented X3 - Psychiatric Psychiatric Exam: Normal Affect, Normal Mood - Diagnosis Discharge Problem: Thermal burn - Discharge Plan Disposition: 02 XF [facility] Condition: Stable - Follow ups/Referrals Follow ups/Referrals: FAYE HOGAN [Primary Care Provider] - 3 days - Instructions Additional Notes - Additional Notes Additional Notes: [facility], pt too complicated to monitor here, will xfer Octavio Cornejo acceopts for Dr Momin. Will give Tdap , decadron, humidified O2.
[2017-07-18] MEDS ORDERED: ZOFRAN INJ 4 MG VIAL ONE (09:54)
[2017-07-18] MEDS ORDERED: DECADRON INJ ONE (09:54)
[2017-07-18] MEDS ORDERED: MORPHINE SULFATE INJ 2 MG INJ ONE ×2 (09:54→10:36)
[2017-07-18] MEDS ORDERED: ADACEL TDaP IM ONE (09:55)
[2017-07-18] MEDS ORDERED: STERILE WATER IRRIGATION IR ONE (10:29)
== END 2017-07-18 10:52 | disposition short-term general hospital (02) ==
LOC: ER 09:44
DX: T20.00XA Burn of unspecified degree of head, face, and neck, unspecified site, initial encounter (principal)
CPT/HCPCS: 90471; 96365; 96374; 96375; 99282; 99285; A4217; A4222; J1100; J2270; J2405

== ENCOUNTER 2017-08-05 13:20 | Inpatient (IN) | payer OTHER ==
[2017-08-05] MEDS: PULMICORT NEB TX 0.5 MG NEB SCH (14:20)
[2017-08-05] MEDS: NS 1000 ML 1,000 ML IV SCH (14:23)
[2017-08-05] MEDS: SOLU-Medrol 125 MG VIAL IVP SCH ×2 (14:24→22:01)
[2017-08-05] MEDS: PROTONIX INJ 40 MG VIAL IVP SCH (14:24)
[2017-08-05 14:32] LABS: BASOPHILS # (AUTO) 0.1 X10^3/uL (0.0-0.1); EOSINOPHILS # (AUTO) 0.3 x10^3/uL (0.0-0.2); EOSINOPHILS % (AUTO) 4.2 % (0.9-2.9); HEMATOCRIT 31.8 % (36.0-47.0); HEMOGLOBIN 10.6 g/dL (12.0-16.0); LYMPHOCYTES # (AUTO) 2.8 X10^3/uL (1.3-2.9); MEAN CORPUSCULAR HEMOGLOBIN 29.9 pg (27.0-34.0); MEAN CORPUSCULAR HGB CONC 33.5 g/dL (33.0-35.0); MEAN CORPUSCULAR VOLUME 89.4 fL (80.0-100.0); MEAN PLATELET VOLUME 7.6 fL (7.4-11.0); MONOCYTES # (AUTO) 0.6 x10^3/uL (0.3-0.8); MONOCYTES % (AUTO) 8.5 % (0.0-13.0); NEUTROPHILS # (AUTO) 3.1 x10^3/uL (2.2-4.8); NEUTROPHILS % (AUTO) 45.3 % (42.0-75.0); PLATELET COUNT 347 X10^3/uL (150.0-450.0); RED BLOOD COUNT 3.56 X10^6/uL (3.5-5.4); RED CELL DISTRIBUTION WIDTH 13.3 % (11.6-16.5); WHITE BLOOD COUNT 6.9 X10^3/uL (3.6-10.0)
[2017-08-05 14:44] LABS: ALANINE AMINOTRANSFERASE 10 Units/L (12-78); ALBUMIN 2.6 g/dL (3.4-5.0); ALKALINE PHOSPHATASE 79 Units/L (46-116); ASPARTATE AMINO TRANSFERASE 22 Units/L (15-37); BLOOD UREA NITROGEN 8 mg/dL (7-18); CALCIUM 8.1 mg/dL (8.5-10.1); CARBON DIOXIDE 37.3 mmol/L (21-32); CHLORIDE 100 mmol/L (98-107); COR CA(FOR HYPOALB) 9.2 mg/dL (8.5-10.1); CREATININE 0.79 mg/dL (0.55-1.02); MAGNESIUM 2.2 mg/dL (1.7-2.9); SODIUM 140 mmol/L (136-145); TOTAL PROTEIN 7.5 g/dL (6.4-8.2); eGFR BLACK RACES > 60 (>60); eGFR NON BLACK RACES > 60 (>60)
[2017-08-05] MEDS ORDERED: SALINE 3% 15 ML NEB TX ONE (14:51)
[2017-08-05 14:55] LABS: B-TYPE NATRIURETIC PEPTIDE 333 pg/mL (0-79)
[2017-08-05 14:58] VITALS: BMI 14.1
[2017-08-05] MEDS ORDERED: K-LYTE EFFERVESCENT PO PRN (15:04)
[2017-08-05] MEDS ORDERED: K-RIDER 10 MEQ/NS 100 ML 10 MEQ/100 ML BAG IV PRN (15:04)
[2017-08-05] MEDS ORDERED: POTASSIUM CHLORIDE LIQ 20 MEQ UDC PO PRN (15:04)
[2017-08-05] MEDS ORDERED: POTASSIUM CHL 60 MEQ/NS 0.45% 500 ML IV PRN (15:04)
[2017-08-05] MEDS ORDERED: POTASSIUM CHL 40 MEQ/NS 0.45% 500 ML IV PRN (15:04)
[2017-08-05] MEDS ORDERED: MAGNESIUM SULFATE 1 GM/100 mL PREMIX 1 GM/100 ML BAG IV PRN (15:04)
[2017-08-05 15:18] LABS: CKMB % 3.7 % (<4); CREATINE KINASE 35 Units/L (26-192); CREATINE KINASE MB 1.3 ng/mL (0-4.0); TROPONIN I < 0.02 ng/mL (0-1.5)
--- NOTE | 2017-08-05 15:56 | RAD ---
HISTORY: Shortness of breath, COPD Study: Single view chest Comparison: 03/04/2017 Findings: Single semi upright portable view is submitted. Left chest wall AICD is noted. Lungs are hyperinflate d suggesting underlying COPD. No acute infiltrate, effusion or pneumothorax identified. The cardiac a nd mediastinal contours are within normal limits. The soft tissues are unremarkable. IMPRESSION: 1. Emphysematous changes without acute abnormality. Reported By:
[2017-08-05 16:32] LABS: ABG BASE EXCESS 12.6 mmol/L (-2.0-2.0)
[2017-08-05 16:33] LABS: ABG ALLEN TEST POS; ABG HCO3 42.3 mmol/L (22-26)
--- NOTE | 2017-08-05 16:45 | DR.H&P ---
H&P - History & Physical for Day of: H&P Date: 08/05/17 - Chief Complaint Chief Complaint: SOB "FALLING OUT" , WEIGHT GAIN, WEAKNESS, CHEST CONGESTION - Allergies Allergies/Adverse Reactions: Allergies Allergy/AdvReac Type Severity Reaction Status Date / Time No Known Drug Allergies Allergy Verified 03/03/17 16:04 - History of Present Illness History of Present Illness: PT IS 62 WF DIRECT ADMIT FROM DR RUIZ OFFICE WITH CO SOB, WEAKNESS AND FAINTING SPELLS. PT IS ON CONTINUOUS O2, O2 SAT IN OFFICE 80%, PT VERY WEAK AND PALE,PTS HOME HEALTH CALLED LAST WEEK WITH 14-15LB WEIGHT GAIN. PT HAS BEEN TAKING LASIX WITH WITH ONLY 5LBS LOSS. PT'S SISTER STATES SHE HAS FAINTED 3-4 TIMES THIS WEEK. PT HAS PMH COPD, CHF, CAD, OA. PT ADMITTED TO ICU FOR TREATMENT OF RESP DISTRESS AND CHF - Past Medical History Past Medical History: Angina, Anxiety, COPD, Depression, Dyslipidemia, Hypertension, [place] - Past Surgical History Surgical History: Appendectomy - Family History Family Medical History: Diabetes Mellitus, Cancer, Hypertension - Social History Does patient currently use any type of tobacco product: No (QUIT TWO WEEKS AGO) Have you used tobacco products in the last 12 months: Yes Type of Tobacco Use: Cigarettes Does any household member use tobacco: No Alcohol Use: None Drug Use: None - Medications Home Medications: Doxepin HCl [Sinequan] 10 mg PO HS 08/05/17 [History Confirmed 08/05/17] Gabapentin 2 cap PO HS PRN 08/05/17 [History Confirmed 08/05/17] Venlafaxine HCl Ext Rel [EFFEXOR-XR 37.5 MG CAP *] 37.5 mg PO DAILY 08/05/17 [ History Confirmed 08/05/17] - Review of Systems Constitutional: Weakness, Malaise Eyes: No Symptoms Reported ENT: No Symptoms Reported Respiratory: Cough, Shortness of Breath, SOB with Excertion, Wheezing Cardiovascular: Palpitations, Edema Gastrointestinal: Nausea Genitourinary: No Symptoms Reported Musculoskeletal: Back Pain, Leg Pain, Neck Pain Skin: Ecchymosis Neurological: Weakness - Physical Exam Vital Signs: Temperature 98.0 F Pulse Rate [Apical] 80 Pulse Rate 65 Respiratory Rate 20 Blood Pressure [Left Arm] 138/65 Blood Pressure [Right Arm] 88/53 Blood Pressure 144/79 O2 Sat by Pulse Oximetry 100 Oriented: Normal Eyes: Normal Ear: Normal Nose: Normal Throat: Normal Respiratory: Diminished Throughout Cardiovascular: Bradycardia, Edema : Normal Auscultation: Bowel Sounds: Normal Palpation: Normal Tenderness: Normal Skin: Decreased Turgur Musculoskeletal: Back:Lumbar Psychiatric: Anxiety, Depression Mood Description: Calm, Anxious Speech Pattern: Clear, Delayed - Assessment/Plan (1) Respiratory distress Status: Acute Plan: ADMIT ICU. ABG ON ADMISSION, SUPPLEMENTAL O2. EKG ON ADMISSION, CE, RESP CONSULT. BP MONITORING, CONFIRM HOME MEDS. IV ATBX, SPUTUM CULTURES (2) Acute and chronic respiratory failure ([id number]) Status: Acute (3) CAD (coronary artery disease) Status: Chronic (4) CHF (congestive heart failure) Status: Chronic (5) COPD (chronic obstructive pulmonary disease) Qualifiers: COPD type: COPD with acute exacerbation Qualified Code(s): J44.1 - Chronic obstructive pulmonary disease with (acute) exacerbation Status: Chronic (6) Cardiac defibrillator in place Status: Chronic (7) Degenerative disc disease Status: Chronic (8) History of CVA (cerebrovascular accident) Status: Chronic
[2017-08-05 18:30] LABS: ABG BASE EXCESS 12.3 mmol/L (-2.0-2.0)
[2017-08-05 18:31] LABS: ABG HCO3 40.7 mmol/L (22-26)
[2017-08-05 20:04] LABS: CKMB % 3.7 % (<4); CREATINE KINASE 27 Units/L (26-192); CREATINE KINASE MB < 1.0 ng/mL (0-4.0); TROPONIN I < 0.02 ng/mL (0-1.5)
[2017-08-06] MEDS: PULMICORT NEB TX 0.5 MG NEB SCH ×3 (01:24→21:55)
[2017-08-06 02:16] LABS: CKMB % 3.8 % (<4); CREATINE KINASE 29 Units/L (26-192); CREATINE KINASE MB 1.1 ng/mL (0-4.0); TROPONIN I < 0.02 ng/mL (0-1.5)
[2017-08-06] MEDS: NS 1000 ML 1,000 ML IV SCH ×2 (04:54→18:45)
[2017-08-06 05:37] LABS: ABG HCO3 38.5 mmol/L (22-26)
[2017-08-06] MEDS: SOLU-Medrol 125 MG VIAL IVP SCH (06:07)
[2017-08-06] MEDS ORDERED: ALPRAZOLAM 0.25 MG PO PRN (06:14)
[2017-08-06 06:15] LABS: BASOPHILS % (AUTO) 0.4 % (0.2-1.0); HEMATOCRIT 32.5 % (36.0-47.0); HEMOGLOBIN 11.3 g/dL (12.0-16.0); LYMPHOCYTES # (AUTO) 0.8 X10^3/uL (1.3-2.9); LYMPHOCYTES % (AUTO) 16.2 % (21.0-51.0); MEAN CORPUSCULAR HEMOGLOBIN 30.6 pg (27.0-34.0); MEAN CORPUSCULAR HGB CONC 34.7 g/dL (33.0-35.0); MEAN CORPUSCULAR VOLUME 88.2 fL (80.0-100.0); MEAN PLATELET VOLUME 7.9 fL (7.4-11.0); MONOCYTES # (AUTO) 0 x10^3/uL (0.3-0.8); MONOCYTES % (AUTO) 0.8 % (0.0-13.0); NEUTROPHILS # (AUTO) 3.9 x10^3/uL (2.2-4.8); NEUTROPHILS % (AUTO) 82.6 % (42.0-75.0); PLATELET COUNT 351 X10^3/uL (150.0-450.0); RED BLOOD COUNT 3.68 X10^6/uL (3.5-5.4); RED CELL DISTRIBUTION WIDTH 13.2 % (11.6-16.5); WHITE BLOOD COUNT 4.7 X10^3/uL (3.6-10.0)
[2017-08-06 06:31] LABS: ALANINE AMINOTRANSFERASE 10 Units/L (12-78); ALBUMIN 2.4 g/dL (3.4-5.0); ALKALINE PHOSPHATASE 79 Units/L (46-116); ASPARTATE AMINO TRANSFERASE 16 Units/L (15-37); BLOOD UREA NITROGEN 11 mg/dL (7-18); CALCIUM 8.3 mg/dL (8.5-10.1); CARBON DIOXIDE 32.7 mmol/L (21-32); CHLORIDE 101 mmol/L (98-107); CHOL/HDL RATIO 3.6 (0.0-5.0); CHOLESTEROL 167 mg/dL (0-200); COR CA(FOR HYPOALB) 9.6 mg/dL (8.5-10.1); COR NA(FOR HYPERGLY) 141 mmol/L (136-145); CREATININE 0.57 mg/dL (0.55-1.02); HDL CHOLESTEROL 46 mg/dL (40-60); SODIUM 140 mmol/L (136-145); TOTAL PROTEIN 7.3 g/dL (6.4-8.2); TRIGLYCERIDES 67 mg/dL (0-150); eGFR BLACK RACES > 60 (>60); eGFR NON BLACK RACES > 60 (>60)
[2017-08-06] MEDS ORDERED: XANAX PO PRN (06:33)
[2017-08-06] MEDS ORDERED: NITROSTAT SL PRN (06:44)
[2017-08-06] MEDS: PERCOCET TAB 5/325 MG PO PRN ×3 (07:40→19:30)
[2017-08-06] MEDS ORDERED: ISOSORBIDE DINITRATE PO SCH (09:00)
[2017-08-06] MEDS: ISOSORBIDE DINITRATE PO SCH ×2 (09:14→20:51)
[2017-08-06] MEDS: PROTONIX INJ 40 MG VIAL IVP SCH (09:15)
[2017-08-06] MEDS: COREG TAB 6.25 MG PO SCH ×2 (09:16→20:51)
[2017-08-06] MEDS: EFFEXOR XR 37.5 MG CAP PO SCH (09:16)
[2017-08-06] MEDS: PLAVIX PO SCH (09:16)
[2017-08-06] MEDS: LASIX PO SCH ×2 (10:31→18:44)
[2017-08-06 14:44] LABS: BILIRUBIN,URINE NEGATIVE (NEGATIVE); BLOOD/HEMOGLOBIN,URINE NEGATIVE (NEGATIVE); GLUCOSE, URINE NEGATIVE (NEGATIVE); KETONES,URINE NEGATIVE (NEGATIVE); LEUKOCYTE ESTERASE ,URINE NEGATIVE (NEGATIVE); NITRITES,URINE NEGATIVE (NEGATIVE); PROTEIN,URINE NEGATIVE (NEGATIVE); UROBILINOGEN,URINE NORMAL (NORMAL)
[2017-08-06 14:54] LABS: APPEARANCE,URINE CLEAR (CLEAR); COLOR,URINE STRAW (YELLOW)
[2017-08-06] MEDS ORDERED: ZOCOR TAB 40 MG PO SCH (21:00)
[2017-08-07] MEDS: PERCOCET TAB 5/325 MG PO PRN ×2 (01:43→07:36)
[2017-08-07 07:19] LABS: ALANINE AMINOTRANSFERASE 10 Units/L (12-78); ALBUMIN 2.3 g/dL (3.4-5.0); ALKALINE PHOSPHATASE 65 Units/L (46-116); ASPARTATE AMINO TRANSFERASE 21 Units/L (15-37); BLOOD UREA NITROGEN 20 mg/dL (7-18); CALCIUM 8.2 mg/dL (8.5-10.1); CHLORIDE 100 mmol/L (98-107); COR CA(FOR HYPOALB) 9.6 mg/dL (8.5-10.1); CREATININE 0.57 mg/dL (0.55-1.02); SODIUM 140 mmol/L (136-145); TOTAL PROTEIN 6.8 g/dL (6.4-8.2); eGFR BLACK RACES > 60 (>60); eGFR NON BLACK RACES > 60 (>60)
[2017-08-07 07:28] LABS: BASOPHILS # (AUTO) 0.1 X10^3/uL (0.0-0.1); BASOPHILS % (AUTO) 0.6 % (0.2-1.0); EOSINOPHILS % (AUTO) 0.1 % (0.9-2.9); HEMATOCRIT 31.7 % (36.0-47.0); HEMOGLOBIN 10.9 g/dL (12.0-16.0); LYMPHOCYTES # (AUTO) 2.4 X10^3/uL (1.3-2.9); LYMPHOCYTES % (AUTO) 22.6 % (21.0-51.0); MEAN CORPUSCULAR HGB CONC 34.5 g/dL (33.0-35.0); MEAN CORPUSCULAR VOLUME 87.2 fL (80.0-100.0); MEAN PLATELET VOLUME 7.7 fL (7.4-11.0); MONOCYTES # (AUTO) 0.7 x10^3/uL (0.3-0.8); MONOCYTES % (AUTO) 6.3 % (0.0-13.0); NEUTROPHILS # (AUTO) 7.5 x10^3/uL (2.2-4.8); NEUTROPHILS % (AUTO) 70.4 % (42.0-75.0); PLATELET COUNT 378 X10^3/uL (150.0-450.0); RED BLOOD COUNT 3.64 X10^6/uL (3.5-5.4); RED CELL DISTRIBUTION WIDTH 13.1 % (11.6-16.5); WHITE BLOOD COUNT 10.7 X10^3/uL (3.6-10.0)
[2017-08-07] MEDS: PLAVIX PO SCH (08:00)
[2017-08-07] MEDS: COREG TAB 6.25 MG PO SCH (08:00)
[2017-08-07] MEDS: PROTONIX INJ 40 MG VIAL IVP SCH (08:00)
[2017-08-07] MEDS: ISOSORBIDE DINITRATE PO SCH (08:00)
[2017-08-07] MEDS: EFFEXOR XR 37.5 MG CAP PO SCH (08:00)
[2017-08-07] MEDS: PULMICORT NEB TX 0.5 MG NEB SCH (08:20)
[2017-08-07 09:06] VITALS: BP 154/78
== END 2017-08-07 11:50 | disposition home health service (06) | DRG 189 ==
LOC: ICU 13:20 → OBSVTOIN 13:20
PROVIDERS: ADMIT Internal Medicine; ATTEND Internal Medicine
DX: J96.20 Acute and chronic respiratory failure, unspecified whether with hypoxia or hypercapnia (principal); R55 Syncope and collapse; R53.1 Weakness; I50.9 Heart failure, unspecified; I95.89 Other hypotension; R06.02 Shortness of breath; J44.1 Chronic obstructive pulmonary disease with (acute) exacerbation; I25.10 Atherosclerotic heart disease of native coronary artery without angina pectoris; M19.90 Unspecified osteoarthritis, unspecified site; E78.2 Mixed hyperlipidemia; F32.89 Other specified depressive episodes; F41.8 Other specified anxiety disorders; Z95.1 Presence of aortocoronary bypass graft; Z66 Do not resuscitate
CPT/HCPCS: 36415; 36600; 71045; 80053; 80061; 81003; 82550; 82553; 82803; 83735; 83880; 84484; 85025; 85610; 85730; 87070; 87205; 93005; 93010; 94640; 94660; A4216; A4222; A4618; A7030; C9113; J2930; J7626

== ENCOUNTER → 2017-08-21 | Outpatient (CLI) | payer OTHER ==
[2017-08-07 09:06] VITALS: BP 154/78
--- NOTE | 2017-08-21 14:17 | CT ---
HEAD CT WITHOUT IV CONTRAST CLINICAL INDICATION: Syncope and neck pain TECHNIQUE: Axial CT images from skull base to vertex without IV contrast.Dose reduction techniques in cluding Automated Exposure Control (AEC) and adjustment of mA and kV were utlized. COMPARISON: None FINDINGS: Diffuse patchy and confluent white matter hypoattenuation with associated volume loss. There is no ev idence of acute infarction, intracranial hemorrhage, mass or mass effect, or abnormal extra-axial col lection. The density of the larger dural venous sinuses is normal. Age-related, ex-vacuo dilatation o f the ventricles and sulci. The skull base and calvarium are normal. The included paranasal sinuses a nd mastoid air cells are predominantly clear. IMPRESSION: 1. No acute intracranial abnormality. 2. Chronic microangiopathic changes and ex vacuo dilatation of the ventricles and sulci. Reported By:
--- NOTE | 2017-08-21 14:19 | CT ---
CT NECK WITHOUT IV CONTRAST CLINICAL INDICATION: Neck pain TECHNIQUE: Multiple-row detector helical CT examination of the neck per standard departmental protoc ol. Dose reduction techniques including Automated Exposure Control (AEC) and adjustment of mA and kV were utlized. COMPARISON: None. FINDINGS: It should be noted that evaluation of the neck for vascular and soft tissue lesions is extremely subo ptimal in the absence of intravenous contrast. The aerodigestive structures are within normal limits. Specifically, the nasal cavity, nasopharynx, oral cavity, oropharynx, hypopharynx, larynx, and visualized trachea and esophagus demonstrate no mas ses or abnormal enhancement. No pathologically enlarged, necrotic, or otherwise abnormal lymph nodes. The parotid and submandibular glands appear within normal limits. The thyroid gland is normal in size without focal abnormality. Evaluation of the visualized portions of brain parenchyma and orbits demonstrates no abnormality. The visualized paranasal sinuses are predominantly clear. The tympanomastoid cavities are unopacified. Emphysema of the lung apices. The visualized osseous structures are within normal limits. IMPRESSION: 1. No source of patient's neck pain is identified on this examination. Reported By:
== END ==
LOC: RAD 12:57
PROVIDERS: ATTEND Internal Medicine
DX: R55 Syncope and collapse (principal); M54.2 Cervicalgia
CPT/HCPCS: 70450; 70490; A4222

== ENCOUNTER → 2017-08-27 | Outpatient (CLI) | payer OTHER ==
[2017-08-07 09:06] VITALS: BP 154/78
--- NOTE | 2017-08-27 15:23 | CT ---
HISTORY: Intervertebral disc degeneration. Study: CT lumbar spine without contrast Comparison: CT abdomen/pelvis dated May 28, 2016. Technique: Multiple axial images of the lumbar spine were obtained from the thoracolumbar junction t o the sacrum without the administration of IV contrast. Sagittal and coronal reformats were performe d and reviewed. Dose reduction techniques including Automated Exposure Control (AEC) and adjustment of mA and kV were utilized. Findings: No acute fracture or listhesis. Mild multilevel degenerative changes of the lumbar spine. No signific ant neural foraminal narrowing or spinal canal stenosis. Bilateral nonobstructing renal nephroliths. Vascular calcifications without evidence of aneurysmal dilatation. Remaining soft tissues are unremar kable. IMPRESSION: Chronic findings as above. Reported By:
== END ==
LOC: RAD 13:56
PROVIDERS: ATTEND Internal Medicine
DX: M51.36 Other intervertebral disc degeneration, lumbar region (principal)
CPT/HCPCS: 72131

== ENCOUNTER 2018-06-19 14:11 | Inpatient (IN) ==
--- NOTE | 2018-06-19 14:44 | DR.H&P ---
H&P - History & Physical for Day of: H&P Date: 06/19/18 - Chief Complaint Chief Complaint: SOB, CCC, WEAKNESS, SYNCOPE - History of Present Illness History of Present Illness: 63 WF DIRECT ADMIT FROM DR RUIZ OFFICE WITH SOB, COPD WITH ACUTE BRONCHITIS, FAILED OUTPT THERAPY. PT WAS TREATED WITH IM ROCEPHIN AND DECADRON PO LEVAQUIN WITH RESP THERAPY AND NO IMPROVEMENT. PT HAS PMH OF RESP FAILURE O2 DEPENDENT, CHF, OA, ADULT FAILURE TO THRIVE. PT STATES SHE FEELS VERY WEAK, DIZZINESS, MULTIPLE NEAR SYNCOPAL EPISODES AND SYNCOPE WITH HEAD INJURY ON 05/29, PT WAS SEEN IN ER FOR XRAYS. PT ADMITTED FOR TREATMENT OF RESP DISTRESS, ACUTE ON CHRONIC AB, CHF. - Past Medical History Past Medical History: Angina, [place], Hypertension, Dyslipidemia, Depression, Anxiety, COPD - Past Surgical History Surgical History: Appendectomy - Family History Family Medical History: Diabetes Mellitus, Cancer, Hypertension - Social History Does patient currently use any type of tobacco product: Yes Have you used tobacco products in the last 12 months: Yes Type of Tobacco Use: Cigarettes Does any household member use tobacco: Yes Alcohol Use: None Drug Use: None - Medications Home Medications: No Known Drug Allergies Allergy (Verified 09/29/17 13:37) - Review of Systems Constitutional: Weakness Eyes: No Symptoms Reported ENT: No Symptoms Reported Respiratory: Cough, Shortness of Breath, SOB with Excertion, Pleuritic Pain, Sputum Cardiovascular: Palpitations, Light Headedness Gastrointestinal: No Symptoms Reported Genitourinary: No Symptoms Reported Musculoskeletal: Back Pain, Neck Pain Skin: No Symptoms Reported Neurological: Weakness - Physical Exam Vital Signs: Blood Pressure [Left Arm] 144/78 Blood Pressure [Right Arm] 145/87 Blood Pressure 145/87 Oriented: Normal Eyes: Normal Ear: Normal Throat: Normal Respiratory: Diminished Throughout Cardiovascular: Tachycardia (108 RATE). negative: Edema : Normal Auscultation: Bowel Sounds: Normal Palpation: Normal Tenderness: Normal Skin: Decreased Turgur, Bruising Musculoskeletal: Back:Thoracic, Back:Lumbar, Tender, Motor Deficit Psychiatric: Anxiety, Depression Affect: Anxious Speech Pattern: Clear, Appropriate - Assessment/Plan (1) Acute and chronic respiratory failure ([id number]) Status: Acute Plan: ADMIT, PNEUMONIA PROTOCOL. IV ATBX, RESP THEPAY, ABG ON ADMISSION. SUPPLEMENTAL O2. GENTLE IV HYDRATION, STEWARD CATH NEEDED, STRICT I & OS. CXR ON ADMISSION, VERIFY HOME MEDICAITON. IV SOLU MEDROL, BUDESONIDE. CARDIAC MONITORING (2) Acute exacerbation of chronic obstructive pulmonary disease Status: Acute (3) Respiratory distress Status: Acute (4) CAD (coronary artery disease) Status: Chronic (5) CHF (congestive heart failure) Status: Chronic (6) Cardiac defibrillator in place Status: Chronic (7) Degenerative disc disease Status: Chronic (8) Hypertension Qualifiers: Hypertension type: essential hypertension Qualified Code(s): I10 - Essential (primary) hypertension Status: Chronic - Allergies Allergies/Adverse Reactions: Allergies Allergy/AdvReac Type Severity Reaction Status Date / Time No Known Drug Allergies Allergy Verified 09/29/17 13:37
--- NOTE | 2018-06-19 16:35 | RAD ---
HISTORY: Pneumonia Study: PA and lateral chest Comparison: One-view chest 08/05/2017 Technique: PA and lateral chest Findings: Pacemaker/defibrillator is in place battery over the left anterior thorax single lead in the inferior right ventricle. The heart size and configuration are normal. The airway vascularity are normal the lungs are clear. There is no hilar or mediastinal adenopathy. There are no infiltrates to suggest pneumonia. When compared to the prior chest film 08/05/2017 is no interval change. IMPRESSION: 1. No acute cardiopulmonary abnormalities. Diffuse view later in place. 2. No change from last film 08/05/2017 Reported By:
[2018-06-19] MEDS: PULMICORT NEB TX 0.5 MG NEB SCH ×2 (16:57→21:29)
[2018-06-19 17:15] LABS: BASOPHILS % (AUTO) 0.7 % (0.2-1.0); EOSINOPHILS # (AUTO) 0.1 x10^3/uL (0.0-0.2); HEMATOCRIT 32.9 % (36.0-47.0); LYMPHOCYTES # (AUTO) 1.9 X10^3/uL (1.3-2.9); MEAN CORPUSCULAR HEMOGLOBIN 30.7 pg (27.0-34.0); MEAN CORPUSCULAR HGB CONC 33.4 g/dL (33.0-35.0); MEAN PLATELET VOLUME 7.7 fL (7.4-11.0); MONOCYTES # (AUTO) 0.3 x10^3/uL (0.3-0.8); MONOCYTES % (AUTO) 4.6 % (0.0-13.0); NEUTROPHILS # (AUTO) 4.4 x10^3/uL (2.2-4.8); NEUTROPHILS % (AUTO) 65.7 % (42.0-75.0); PLATELET COUNT 379 X10^3/uL (150.0-450.0); RED BLOOD COUNT 3.58 X10^6/uL (3.5-5.4); WHITE BLOOD COUNT 6.7 X10^3/uL (3.6-10.0)
[2018-06-19 17:22] VITALS: BMI 14.4
[2018-06-19] MEDS: DUONEB 0.5 MG/3 MG NEB SCH ×2 (17:32→21:29)
[2018-06-19 17:35] LABS: BLOOD UREA NITROGEN 9 mg/dL (7-18); CALCIUM 9.3 mg/dL (8.5-10.1); CARBON DIOXIDE 34.9 mmol/L (21-32); CHLORIDE 97 mmol/L (98-107); CREATININE 0.78 mg/dL (0.55-1.02); SODIUM 138 mmol/L (136-145); TROPONIN I < 0.02 ng/mL (0-1.5); eGFR NON BLACK RACES > 60 (>60)
[2018-06-19] MEDS: ROBITUSSIN DM PO SCH ×2 (17:35→21:08)
[2018-06-19 17:39] LABS: ALANINE AMINOTRANSFERASE 15 Units/L (12-78); ALBUMIN 4.1 g/dL (3.4-5.0); ALKALINE PHOSPHATASE 102 Units/L (46-116); ASPARTATE AMINO TRANSFERASE 19 Units/L (15-37); CREATINE KINASE 81 Units/L (26-192); CREATINE KINASE MB 1.6 ng/mL (0-4.0); TOTAL PROTEIN 8.6 g/dL (6.4-8.2)
[2018-06-19] MEDS ORDERED: SOLU-Medrol 40 MG VIAL ONE (17:51)
[2018-06-19] MEDS: NS 1000 ML 1,000 ML IV SCH (17:53)
[2018-06-19] MEDS: SOLU-Medrol 125 MG VIAL IVP SCH ×2 (17:56→22:49)
[2018-06-19] MEDS: PEPCID 20 MG IV PREMIX* 20 MG/50 ML BAG IV SCH ×2 (17:57→23:29)
[2018-06-19] MEDS: LEVAQUIN PREMIX IV 750 MG 750 MG/150 ML BAG IV SCH (18:13)
[2018-06-19] MEDS: ZOSYN VIAL 4.5 GRAMS 4.5 G in NS 100 ML IV + SPIKE MINIBAG* 100 ML IV SCH ×2 (21:09→22:57)
[2018-06-19] MEDS ORDERED: PHENERGAN INJ 25 MG IM PRN (21:22)
[2018-06-19] MEDS: NORCO 5/325 MG TAB PO PRN (21:54)
[2018-06-19] MEDS ORDERED: XANAX ONE (23:25)
[2018-06-19] MEDS: XANAX PO PRN (23:30)
[2018-06-20] MEDS: SOLU-Medrol 125 MG VIAL IVP SCH ×3 (05:19→21:33)
[2018-06-20] MEDS: ZOSYN VIAL 4.5 GRAMS 4.5 G in NS 100 ML IV + SPIKE MINIBAG* 100 ML IV SCH ×3 (05:19→21:33)
[2018-06-20 06:10] LABS: BASOPHILS % (AUTO) 0.2 % (0.2-1.0); HEMATOCRIT 32.2 % (36.0-47.0); HEMOGLOBIN 10.7 g/dL (12.0-16.0); LYMPHOCYTES # (AUTO) 0.5 X10^3/uL (1.3-2.9); LYMPHOCYTES % (AUTO) 13.1 % (21.0-51.0); MEAN CORPUSCULAR HEMOGLOBIN 30.7 pg (27.0-34.0); MEAN CORPUSCULAR HGB CONC 33.1 g/dL (33.0-35.0); MEAN CORPUSCULAR VOLUME 92.6 fL (80.0-100.0); MEAN PLATELET VOLUME 7.8 fL (7.4-11.0); MONOCYTES # (AUTO) 0 x10^3/uL (0.3-0.8); MONOCYTES % (AUTO) 0.8 % (0.0-13.0); NEUTROPHILS # (AUTO) 3.4 x10^3/uL (2.2-4.8); NEUTROPHILS % (AUTO) 85.9 % (42.0-75.0); PLATELET COUNT 333 X10^3/uL (150.0-450.0); RED BLOOD COUNT 3.48 X10^6/uL (3.5-5.4); RED CELL DISTRIBUTION WIDTH 13.9 % (11.6-16.5)
[2018-06-20 06:27] LABS: ALANINE AMINOTRANSFERASE 12 Units/L (12-78); ALBUMIN 2.8 g/dL (3.4-5.0); ALKALINE PHOSPHATASE 69 Units/L (46-116); ASPARTATE AMINO TRANSFERASE 14 Units/L (15-37); BLOOD UREA NITROGEN 11 mg/dL (7-18); CALCIUM 8.3 mg/dL (8.5-10.1); CARBON DIOXIDE 32.7 mmol/L (21-32); CHLORIDE 103 mmol/L (98-107); COR CA(FOR HYPOALB) 9.3 mg/dL (8.5-10.1); COR NA(FOR HYPERGLY) 141 mmol/L (136-145); CREATININE 0.63 mg/dL (0.55-1.02); SODIUM 140 mmol/L (136-145); TOTAL PROTEIN 6.6 g/dL (6.4-8.2); eGFR NON BLACK RACES > 60 (>60)
[2018-06-20] MEDS: PEPCID 20 MG IV PREMIX* 20 MG/50 ML BAG IV SCH ×2 (08:43→20:26)
[2018-06-20] MEDS: LEVAQUIN PREMIX IV 750 MG 750 MG/150 ML BAG IV SCH (08:43)
[2018-06-20] MEDS: NORCO 5/325 MG TAB PO PRN (08:44)
[2018-06-20] MEDS: ROBITUSSIN DM PO SCH ×4 (08:44→20:26)
[2018-06-20] MEDS: DUONEB 0.5 MG/3 MG NEB SCH ×4 (09:44→20:48)
[2018-06-20] MEDS: PULMICORT NEB TX 0.5 MG NEB SCH ×2 (09:44→20:49)
[2018-06-20] MEDS ORDERED: PATIENT'S HOME MEDICATION (Oxycodone-Acetaminophen [Oxycodone-Acetaminophen] 1 TAB) PO PRN (09:45)
[2018-06-20] MEDS: MORPHINE SULFATE INJ 2 MG INJ IVP PRN ×2 (10:16→15:56)
[2018-06-20] MEDS: COREG TAB 6.25 MG PO SCH ×2 (10:17→20:26)
[2018-06-20] MEDS: ISOSORBIDE DINITRATE PO SCH ×2 (10:17→20:26)
[2018-06-20] MEDS: MEGACE PO SCH ×2 (10:17→20:26)
[2018-06-20] MEDS: LASIX PO SCH ×2 (10:17→20:26)
[2018-06-20] MEDS: PLAVIX PO SCH (10:17)
[2018-06-20] MEDS ORDERED: NS 250 ML IV 250 ML ONE (13:44)
[2018-06-20] MEDS: NEURONTIN CAP 300 MG PO SCH ×2 (15:19→21:33)
[2018-06-20] MEDS: LOVENOX INJ 40 MG SYR SC SCH (15:56)
[2018-06-20] MEDS: NITROSTAT SL PRN ×3 (16:30→16:40)
[2018-06-20] MEDS: NS 1000 ML 1,000 ML IV SCH (17:17)
[2018-06-20 17:28] LABS: CREATINE KINASE 27 Units/L (26-192); CREATINE KINASE MB < 1.0 ng/mL (0-4.0); TROPONIN I 0.02 ng/mL (0-1.5)
[2018-06-20 17:51] LABS: CKMB % 3.7 % (<4)
[2018-06-20] MEDS: XANAX PO PRN (20:26)
[2018-06-20] MEDS: ZOCOR TAB 40 MG PO SCH (20:26)
[2018-06-21] MEDS: NORCO 5/325 MG TAB PO PRN ×3 (00:06→14:12)
[2018-06-21] MEDS: ZOSYN VIAL 4.5 GRAMS 4.5 G in NS 100 ML IV + SPIKE MINIBAG* 100 ML IV SCH ×3 (05:39→22:30)
[2018-06-21] MEDS: NEURONTIN CAP 300 MG PO SCH ×3 (05:39→21:16)
[2018-06-21] MEDS: SOLU-Medrol 125 MG VIAL IVP SCH ×3 (05:39→21:17)
[2018-06-21 06:03] LABS: BASOPHILS % (AUTO) 0.2 % (0.2-1.0); HEMATOCRIT 31.9 % (36.0-47.0); HEMOGLOBIN 10.8 g/dL (12.0-16.0); LYMPHOCYTES # (AUTO) 0.9 X10^3/uL (1.3-2.9); LYMPHOCYTES % (AUTO) 11.4 % (21.0-51.0); MEAN CORPUSCULAR HEMOGLOBIN 30.4 pg (27.0-34.0); MEAN CORPUSCULAR HGB CONC 33.9 g/dL (33.0-35.0); MEAN CORPUSCULAR VOLUME 89.8 fL (80.0-100.0); MEAN PLATELET VOLUME 7.8 fL (7.4-11.0); MONOCYTES # (AUTO) 0.2 x10^3/uL (0.3-0.8); MONOCYTES % (AUTO) 2.9 % (0.0-13.0); NEUTROPHILS # (AUTO) 6.6 x10^3/uL (2.2-4.8); NEUTROPHILS % (AUTO) 85.5 % (42.0-75.0); PLATELET COUNT 337 X10^3/uL (150.0-450.0); RED BLOOD COUNT 3.56 X10^6/uL (3.5-5.4); RED CELL DISTRIBUTION WIDTH 13.9 % (11.6-16.5); WHITE BLOOD COUNT 7.7 X10^3/uL (3.6-10.0)
[2018-06-21 06:12] LABS: ALANINE AMINOTRANSFERASE 12 Units/L (12-78); ALBUMIN 2.8 g/dL (3.4-5.0); ALKALINE PHOSPHATASE 62 Units/L (46-116); ASPARTATE AMINO TRANSFERASE 12 Units/L (15-37); BLOOD UREA NITROGEN 12 mg/dL (7-18); CALCIUM 8.1 mg/dL (8.5-10.1); CARBON DIOXIDE 38.5 mmol/L (21-32); CHLORIDE 99 mmol/L (98-107); COR CA(FOR HYPOALB) 9.1 mg/dL (8.5-10.1); COR NA(FOR HYPERGLY) 142 mmol/L (136-145); CREATININE 0.85 mg/dL (0.55-1.02); SODIUM 141 mmol/L (136-145); TOTAL PROTEIN 6.6 g/dL (6.4-8.2); eGFR NON BLACK RACES > 60 (>60)
[2018-06-21] MEDS ORDERED: POTASSIUM CHL 60 MEQ/NS 0.45% 500 ML IV PRN (06:14)
[2018-06-21] MEDS ORDERED: POTASSIUM CHL 40 MEQ/NS 0.45% 500 ML IV PRN (06:14)
[2018-06-21] MEDS ORDERED: KLOR-CON PO PRN (06:14)
[2018-06-21] MEDS ORDERED: MICRO K EXTEN CAP 10 MEQ PO PRN (06:14)
[2018-06-21] MEDS ORDERED: POTASSIUM CHLORIDE LIQ 20 MEQ UDC PO PRN (06:14)
[2018-06-21] MEDS ORDERED: K-RIDER 10 MEQ/NS 100 ML 10 MEQ/100 ML BAG IV PRN (06:14)
[2018-06-21] MEDS ORDERED: K-DUR TAB 20 MEQ PO PRN (06:14)
[2018-06-21] MEDS: DUONEB 0.5 MG/3 MG NEB SCH ×5 (07:53→20:09)
[2018-06-21] MEDS: PULMICORT NEB TX 0.5 MG NEB SCH ×2 (07:54→20:09)
[2018-06-21] MEDS: PEPCID 20 MG IV PREMIX* 20 MG/50 ML BAG IV SCH ×2 (08:49→21:17)
[2018-06-21] MEDS: LEVAQUIN PREMIX IV 750 MG 750 MG/150 ML BAG IV SCH (08:49)
[2018-06-21] MEDS: PLAVIX PO SCH (08:50)
[2018-06-21] MEDS: MEGACE PO SCH ×2 (08:50→21:16)
[2018-06-21] MEDS: LASIX PO SCH ×2 (08:50→21:16)
[2018-06-21] MEDS: COREG TAB 6.25 MG PO SCH ×2 (08:50→21:14)
[2018-06-21] MEDS: ROBITUSSIN DM PO SCH ×4 (08:50→21:16)
[2018-06-21] MEDS: ISOSORBIDE DINITRATE PO SCH ×2 (08:51→21:14)
[2018-06-21] MEDS: LOVENOX INJ 40 MG SYR SC SCH (08:51)
[2018-06-21] MEDS: MORPHINE SULFATE INJ 2 MG INJ IVP PRN ×2 (10:49→15:40)
[2018-06-21] MEDS: MAGNESIUM SULFATE 1 GRAM/100 mL PREMIX 1 GM/100 ML BAG IV PRN ×2 (10:49→17:09)
--- NOTE | 2018-06-21 12:30 | CT ---
HISTORY: Peripheral artery disease Study: CT lower extremity runoff with contrast Comparison: None Technique: Multiple axial images of the abdomen, pelvis and lower extremities were obtained from the lung bases to the feet after the administration of IV contrast. Findings: The visualized portions of the lung bases are unremarkable. The liver, spleen, pancreas, kidneys, and adrenal glands are unremarkable in their CT appearance. The gallbladder is unremarkable in its CT appearance. No significant mesenteric lymphadenopathy or stranding can be observed. No free fluid or free air is seen within the abdomen. No bowel wall thickening or bowel dilatation is present. The colon is unremarkable. Specifically, there is no diverticulosis noted within the sigmoid colon. The urinary bladder is grossly unremarkable. The bony structures are grossly intact. Atherosclerosis of the aorta with a small focal infrarenal aortic dilatation measuring 1.9 x 1.8 cm. There is a large amount of plaque noted in the origin the SMA however there is opacification distally probably due to collateralization. Celiac axis appears patent. The ILENE is also patent. There is atherosclerosis involving the entire visualized portions of the aorta common iliac vessels moderate short stenoses involving common iliacs bilaterally. There is some scattered plaque throughout the external iliacs and common femoral arteries however no significant atherosclerotic plaque is noted in the SFA is or popliteal arteries. There are bilateral 3 vessel runoff to the level of the feet. Correlation with Doppler ultrasound may be of benefit further evaluation assess the waveforms. IMPRESSION: 1. Advanced atherosclerosis of the aorta and SMA as above with moderate to severe short segment stenosis involving the common iliac vessels bilaterally. However, there is no significant plaque noted in the lower extremities and there are bilateral 3 vessel runoff to the level of feet. Reported By:
--- NOTE | 2018-06-21 14:44 | RAD ---
HISTORY: Shortness of breath COPD Study: Single-view chest Comparison: 06/19/2018 Findings: The trachea is midline. The cardiac silhouette is stable as is a left-sided defibrillator. The lungs are clear without focal infiltrate or effusion. The bony thorax is unremarkable. IMPRESSION: 1. No acute cardiopulmonary disease. Reported By:
[2018-06-21] MEDS: NS 1000 ML 1,000 ML IV SCH (14:50)
[2018-06-21] MEDS: XANAX PO PRN (16:34)
[2018-06-21] MEDS: ZOCOR TAB 40 MG PO SCH (21:16)
[2018-06-22] MEDS: NORCO 5/325 MG TAB PO PRN (00:24)
[2018-06-22] MEDS: NEURONTIN CAP 300 MG PO SCH (05:52)
[2018-06-22] MEDS: SOLU-Medrol 125 MG VIAL IVP SCH (05:52)
[2018-06-22] MEDS: ZOSYN VIAL 4.5 GRAMS 4.5 G in NS 100 ML IV + SPIKE MINIBAG* 100 ML IV SCH (05:53)
[2018-06-22 06:19] LABS: BASOPHILS % (AUTO) 0.1 % (0.2-1.0); HEMATOCRIT 37.1 % (36.0-47.0); HEMOGLOBIN 12.4 g/dL (12.0-16.0); LYMPHOCYTES # (AUTO) 0.9 X10^3/uL (1.3-2.9); MEAN CORPUSCULAR HEMOGLOBIN 30.1 pg (27.0-34.0); MEAN CORPUSCULAR HGB CONC 33.4 g/dL (33.0-35.0); MEAN CORPUSCULAR VOLUME 90.3 fL (80.0-100.0); MEAN PLATELET VOLUME 7.8 fL (7.4-11.0); MONOCYTES # (AUTO) 0.7 x10^3/uL (0.3-0.8); MONOCYTES % (AUTO) 5.7 % (0.0-13.0); NEUTROPHILS % (AUTO) 86.2 % (42.0-75.0); PLATELET COUNT 344 X10^3/uL (150.0-450.0); RED BLOOD COUNT 4.11 X10^6/uL (3.5-5.4); RED CELL DISTRIBUTION WIDTH 14.1 % (11.6-16.5); WHITE BLOOD COUNT 11.6 X10^3/uL (3.6-10.0)
[2018-06-22 06:25] LABS: ALANINE AMINOTRANSFERASE 12 Units/L (12-78); ALBUMIN 3.2 g/dL (3.4-5.0); ALKALINE PHOSPHATASE 63 Units/L (46-116); ASPARTATE AMINO TRANSFERASE 15 Units/L (15-37); BLOOD UREA NITROGEN 16 mg/dL (7-18); CALCIUM 8.5 mg/dL (8.5-10.1); CARBON DIOXIDE 33.1 mmol/L (21-32); CHLORIDE 98 mmol/L (98-107); COR CA(FOR HYPOALB) 9.1 mg/dL (8.5-10.1); COR NA(FOR HYPERGLY) 138 mmol/L (136-145); CREATININE 0.87 mg/dL (0.55-1.02); MAGNESIUM 2.5 mg/dL (1.7-2.9); SODIUM 138 mmol/L (136-145); TOTAL PROTEIN 7.4 g/dL (6.4-8.2); eGFR NON BLACK RACES > 60 (>60)
[2018-06-22] MEDS: DUONEB 0.5 MG/3 MG NEB SCH ×2 (08:10→12:44)
[2018-06-22] MEDS: PULMICORT NEB TX 0.5 MG NEB SCH (08:10)
[2018-06-22] MEDS: COREG TAB 6.25 MG PO SCH (08:18)
[2018-06-22] MEDS: LASIX PO SCH (08:18)
[2018-06-22] MEDS: MEGACE PO SCH (08:18)
[2018-06-22] MEDS: PEPCID 20 MG IV PREMIX* 20 MG/50 ML BAG IV SCH (08:19)
[2018-06-22] MEDS: LOVENOX INJ 40 MG SYR SC SCH (08:19)
[2018-06-22] MEDS: PLAVIX PO SCH (08:19)
[2018-06-22] MEDS: ROBITUSSIN DM PO SCH (08:19)
[2018-06-22] MEDS: LEVAQUIN PREMIX IV 750 MG 750 MG/150 ML BAG IV SCH (08:19)
[2018-06-22] MEDS: ISOSORBIDE DINITRATE PO SCH (08:20)
[2018-06-22 11:26] VITALS: BP 97/51
== END 2018-06-22 12:45 | disposition home or self-care (01) | DRG 190 ==
LOC: ICU 16:21
PROVIDERS: ADMIT Internal Medicine; ATTEND Internal Medicine
DX: I50.9 Heart failure, unspecified; R62.7 Adult failure to thrive; I11.0 Hypertensive heart disease with heart failure; M19.90 Unspecified osteoarthritis, unspecified site; E78.2 Mixed hyperlipidemia; Z66 Do not resuscitate; R53.1 Weakness; J20.8 Acute bronchitis due to other specified organisms; I25.10 Atherosclerotic heart disease of native coronary artery without angina pectoris; J44.1 Chronic obstructive pulmonary disease with (acute) exacerbation; J96.20 Acute and chronic respiratory failure, unspecified whether with hypoxia or hypercapnia; Z79.01 Long term (current) use of anticoagulants; Z86.73 Personal history of transient ischemic attack (TIA), and cerebral infarction without residual deficits; Z95.0 Presence of cardiac pacemaker; R55 Syncope and collapse
CPT/HCPCS: 36415; 71010; 71020; 71045; 71046; 73706; 80053; 82550; 82553; 83735; 84132; 84484; 85025; 85610; 87040; 87070; 87205; 93005; 94640; 99231; A4222; S0028; S0179; J1650; J1956; J2270; J2543; J2920; J2930; J3475; J7030; J7050; J7620; J7626

== ENCOUNTER 2018-07-21 14:32 | Observation (INO) ==
[2018-07-21] MEDS ORDERED: OXYCODONE ACETAMINOPHEN PO SCH (17:45)
--- NOTE | 2018-07-21 17:48 | DR.H&P ---
H&P - History & Physical for Day of: H&P Date: 07/21/18 - Chief Complaint Chief Complaint: weakness, weight loss, sob, hypotension - History of Present Illness History of Present Illness: 63 WF DIRECT ADMIT FROM DR RUIZ OFFICE WITH CO WEIGHT LOSS, WEIGHED 76 LBS IN OFFICE, INCREASED SOB, WEAKNESS, NO APPETITE. PT AND FAMILY REPORTS, "SHES NOT EATING", INCREASED FALLS AND BP RUNNING LOW. PT HAD PMH OF COPD, RESP FAILURE, OA, [place]. PT ON CONTINUOUS O2. PT ADMITTED FOR TREATMENT AND EVALUATION OF ACUTE ILLNESS. - Past Medical History Past Medical History: Angina, [place], Hypertension, Dyslipidemia, Depression, Anxiety, COPD - Past Surgical History Surgical History: Appendectomy - Family History Family Medical History: Diabetes Mellitus, Hypertension - Social History Does patient currently use any type of tobacco product: Yes Have you used tobacco products in the last 12 months: Yes Type of Tobacco Use: Cigarettes Does any household member use tobacco: No Alcohol Use: None Drug Use: None - Medications Home Medications: No Known Drug Allergies Allergy (Verified 09/29/17 13:37) - Review of Systems Constitutional: Weakness Eyes: No Symptoms Reported ENT: No Symptoms Reported Respiratory: Shortness of Breath, SOB with Excertion Cardiovascular: Light Headedness. denies: Edema Gastrointestinal: Nausea, Other (WEIGHT LOSS, NO APPETITE) Genitourinary: No Symptoms Reported Musculoskeletal: Back Pain, Leg Pain, Neck Pain Skin: No Symptoms Reported Neurological: Weakness - Physical Exam Vital Signs: Blood Pressure [Left Arm] 140/65 Blood Pressure [Right Arm] 145/87 Blood Pressure 97/51 Oriented: Normal Eyes: Normal Ear: Normal Nose: Normal Throat: Normal Respiratory: RLL Diminished, LLL Diminished Cardiovascular: Tachycardia. negative: Edema : Normal Auscultation: Bowel Sounds: Normal Palpation: Normal Tenderness: Normal Skin: Decreased Turgur Musculoskeletal: Back:Lumbar, Tender Psychiatric: Normal Mood Description: Anxious Affect: Anxious Speech Pattern: Clear, Appropriate - Assessment/Plan (1) Dehydration Status: Acute Plan: ADMIT, CONTINUOUS CARDIAC MONITORING. ICU, SERIAL CE AND EKG. IV HYDRATION, ADMISSION LABS CXR AND ABG ON ADMISSION. SUPPLEMENTAL O2 (2) Hypotension Status: Acute (3) Anorexia Status: Acute (4) Anxiety Status: Chronic (5) Arthritis Status: Chronic (6) CAD (coronary artery disease) Status: Chronic (7) CHF (congestive heart failure) Status: Chronic (8) COPD (chronic obstructive pulmonary disease) Qualifiers: COPD type: COPD with acute exacerbation Qualified Code(s): J44.1 - Chronic obstructive pulmonary disease with (acute) exacerbation Status: Chronic (9) Cardiac defibrillator in place Status: Chronic (10) Degenerative disc disease Status: Chronic - Allergies Allergies/Adverse Reactions: Allergies Allergy/AdvReac Type Severity Reaction Status Date / Time No Known Drug Allergies Allergy Verified 09/29/17 13:37
[2018-07-21 19:40] LABS: BASOPHILS # (AUTO) 0.1 X10^3/uL (0.0-0.1); BASOPHILS % (AUTO) 1.1 % (0.2-1.0); EOSINOPHILS # (AUTO) 0.1 x10^3/uL (0.0-0.2); EOSINOPHILS % (AUTO) 1.3 % (0.9-2.9); HEMATOCRIT 39.2 % (36.0-47.0); HEMOGLOBIN 13.3 g/dL (12.0-16.0); LYMPHOCYTES # (AUTO) 2.4 X10^3/uL (1.3-2.9); LYMPHOCYTES % (AUTO) 34.5 % (21.0-51.0); MEAN CORPUSCULAR HEMOGLOBIN 30.5 pg (27.0-34.0); MEAN CORPUSCULAR HGB CONC 33.9 g/dL (33.0-35.0); MEAN CORPUSCULAR VOLUME 89.8 fL (80.0-100.0); MEAN PLATELET VOLUME 7.8 fL (7.4-11.0); MONOCYTES # (AUTO) 0.6 x10^3/uL (0.3-0.8); NEUTROPHILS # (AUTO) 3.8 x10^3/uL (2.2-4.8); NEUTROPHILS % (AUTO) 54.1 % (42.0-75.0); PLATELET COUNT 471 X10^3/uL (150.0-450.0); RED BLOOD COUNT 4.37 X10^6/uL (3.5-5.4); RED CELL DISTRIBUTION WIDTH 13.5 % (11.6-16.5); WHITE BLOOD COUNT 7.1 X10^3/uL (3.6-10.0)
[2018-07-21 19:48] LABS: ALANINE AMINOTRANSFERASE 15 Units/L (12-78); ALKALINE PHOSPHATASE 76 Units/L (46-116); ASPARTATE AMINO TRANSFERASE 20 Units/L (15-37); BLOOD UREA NITROGEN 13 mg/dL (7-18); CALCIUM 9.2 mg/dL (8.5-10.1); CARBON DIOXIDE 32.7 mmol/L (21-32); CHLORIDE 98 mmol/L (98-107); CREATININE 0.64 mg/dL (0.55-1.02); MAGNESIUM 1.9 mg/dL (1.7-2.9); SODIUM 139 mmol/L (136-145); TOTAL PROTEIN 7.9 g/dL (6.4-8.2); eGFR NON BLACK RACES > 60 (>60)
[2018-07-21 20:28] VITALS: BMI 13.3
[2018-07-21] MEDS: PERCOCET TAB 5/325 MG PO SCH (21:00)
[2018-07-21] MEDS: ISOSORBIDE DINITRATE PO SCH (21:00)
[2018-07-21] MEDS ORDERED: ISOSORBIDE DINITRATE PO SCH (21:00)
[2018-07-21] MEDS ORDERED: LASIX PO SCH (21:00)
[2018-07-21] MEDS: ZOCOR TAB 40 MG PO SCH (21:00)
[2018-07-21] MEDS: NEURONTIN CAP 300 MG PO SCH ×2 (21:02→22:51)
[2018-07-21] MEDS: XANAX PO PRN (22:45)
[2018-07-21 23:11] LABS: ABG BASE EXCESS 9.7 mmol/L (-2.0-2.0)
[2018-07-21 23:13] LABS: ABG HCO3 35.8 mmol/L (22-26)
[2018-07-22 05:23] LABS: BASOPHILS # (AUTO) 0.1 X10^3/uL (0.0-0.1); BASOPHILS % (AUTO) 0.8 % (0.2-1.0); EOSINOPHILS # (AUTO) 0.1 x10^3/uL (0.0-0.2); EOSINOPHILS % (AUTO) 1.5 % (0.9-2.9); HEMATOCRIT 40.5 % (36.0-47.0); HEMOGLOBIN 13.6 g/dL (12.0-16.0); LYMPHOCYTES % (AUTO) 43.3 % (21.0-51.0); MEAN CORPUSCULAR HEMOGLOBIN 30.8 pg (27.0-34.0); MEAN CORPUSCULAR HGB CONC 33.7 g/dL (33.0-35.0); MEAN CORPUSCULAR VOLUME 91.3 fL (80.0-100.0); MONOCYTES # (AUTO) 0.7 x10^3/uL (0.3-0.8); MONOCYTES % (AUTO) 9.9 % (0.0-13.0); NEUTROPHILS # (AUTO) 3.1 x10^3/uL (2.2-4.8); NEUTROPHILS % (AUTO) 44.5 % (42.0-75.0); PLATELET COUNT 455 X10^3/uL (150.0-450.0); RED BLOOD COUNT 4.43 X10^6/uL (3.5-5.4); RED CELL DISTRIBUTION WIDTH 13.5 % (11.6-16.5)
[2018-07-22 05:42] LABS: ALANINE AMINOTRANSFERASE 15 Units/L (12-78); ALKALINE PHOSPHATASE 74 Units/L (46-116); ASPARTATE AMINO TRANSFERASE 23 Units/L (15-37); BLOOD UREA NITROGEN 16 mg/dL (7-18); CARBON DIOXIDE 32.9 mmol/L (21-32); CHLORIDE 97 mmol/L (98-107); CREATININE 0.81 mg/dL (0.55-1.02); SODIUM 139 mmol/L (136-145); eGFR NON BLACK RACES > 60 (>60)
[2018-07-22] MEDS ORDERED: MICRO K EXTEN CAP 10 MEQ PO PRN (05:59)
[2018-07-22] MEDS ORDERED: MAGNESIUM SULFATE 1 GRAM/100 mL PREMIX 1 GM/100 ML BAG IV PRN (05:59)
[2018-07-22] MEDS ORDERED: POTASSIUM CHL 40 MEQ/NS 0.45% 500 ML IV PRN (05:59)
[2018-07-22] MEDS ORDERED: KLOR-CON PO PRN (05:59)
[2018-07-22] MEDS ORDERED: K-RIDER 10 MEQ/NS 100 ML 10 MEQ/100 ML BAG IV PRN (05:59)
[2018-07-22] MEDS ORDERED: POTASSIUM CHL 60 MEQ/NS 0.45% 500 ML IV PRN (05:59)
[2018-07-22] MEDS ORDERED: POTASSIUM CHLORIDE LIQ 20 MEQ UDC PO PRN (05:59)
[2018-07-22 06:04] LABS: BILIRUBIN,URINE NEGATIVE (NEGATIVE); BLOOD/HEMOGLOBIN,URINE NEGATIVE (NEGATIVE); GLUCOSE, URINE NEGATIVE (NEGATIVE); KETONES,URINE NEGATIVE (NEGATIVE); LEUKOCYTE ESTERASE ,URINE NEGATIVE (NEGATIVE); NITRITES,URINE NEGATIVE (NEGATIVE); PROTEIN,URINE NEGATIVE (NEGATIVE); UROBILINOGEN,URINE NORMAL (NORMAL)
[2018-07-22 06:15] LABS: APPEARANCE,URINE CLEAR (CLEAR); COLOR,URINE YELLOW (YELLOW)
--- NOTE | 2018-07-22 06:38 | RAD ---
HISTORY: Shortness of breath Study: Chest AP portable Comparison: 06/21/2018 Findings: There is a pacemaker present on the left obscuring a portion of the left upper lobe. The heart is within normal limits in size. The david are normal. The lungs are markedly hyperinflated but free of acute infiltrates. No pleural effusions are identified. The bony thorax is unremarkable. IMPRESSION: Lungs markedly hyperinflated but clear, consistent with COPD in the appropriate clinical setting Reported By:
[2018-07-22] MEDS: K-DUR TAB 20 MEQ PO PRN (06:40)
[2018-07-22] MEDS: LASIX PO SCH ×2 (08:41→21:23)
[2018-07-22] MEDS: NEURONTIN CAP 300 MG PO SCH ×2 (08:41→21:23)
[2018-07-22] MEDS: EFFEXOR XR 37.5 MG CAP PO SCH (08:42)
[2018-07-22] MEDS: COUMADIN TAB 3 MG PO SCH ×2 (08:42→08:43)
[2018-07-22] MEDS: PLAVIX PO SCH (08:44)
[2018-07-22] MEDS: ISOSORBIDE DINITRATE PO SCH ×2 (08:44→21:22)
[2018-07-22] MEDS: PERCOCET TAB 5/325 MG PO SCH ×2 (08:44→21:22)
[2018-07-22] MEDS: NS 1000 ML 1,000 ML IV SCH ×2 (08:55→22:15)
[2018-07-22] MEDS: SOLU-Medrol 125 MG VIAL IVP SCH ×3 (08:56→21:21)
[2018-07-22] MEDS ORDERED: PROVENTIL NEB TX 0.083% 2.5MG/ 3ML NEB SCH (09:00)
[2018-07-22] MEDS: DUONEB 0.5 MG/3 MG NEB SCH ×3 (12:11→20:50)
[2018-07-22] MEDS: XANAX PO PRN ×2 (14:22→21:21)
--- NOTE | 2018-07-22 17:56 | PCM.PROG ---
Progress Note - Progress Note for Day of Date of Exam: 07/22/18 - Subjective Subjective: 63 WF ADMITTED ON 07/22 WITH CO SOB, WEAKNESS, CAMPOS, HYPOTENSION AND ANOREXIA. PT HAS HX OF RESP FAILURE. HOME MEDICATIONS RESUMED AND CURRENTLY ON RESP THERAPY, SINCE ADMISSION BP HAS BEEN STABLE. WE HAVE PT ON GENTLE IV HYDRATION AND SUPPLEMENTAL O2. - Past Medical Family Social History Past Med/Fam/Surg Hx: No changes since H&P Allergies: Allergies No Known Drug Allergies Allergy (Verified 09/29/17 13:37) - Review of Systems ROS: No change since H&P - Vital Signs and I&O's Vital Signs: Temperature 98.3 F Pulse Rate [Right Brachial] 95 Pulse Rate 88 Respiratory Rate 20 Blood Pressure [Left Arm] 140/75 Blood Pressure [Right Arm] 109/58 Blood Pressure 97/51 O2 Sat by Pulse Oximetry 94 Intake and Output: Intake & Output 07/20/18 07/21/18 07/22/18 07/23/18 11:59 11:59 11:59 11:59 Intake Total 140 / 140 640 / 640 Balance 140 / 140 640 / 640 - Physical Exam Oriented: Normal Eyes: Normal Ear: Normal Nose: Normal Throat: Normal Respiratory: Diminished, Wheezes Cardiovascular: Tachycardia. negative: Edema : Normal Auscultation: Bowel Sounds: Normal Tenderness: Normal Skin: Decreased Turgur Musculoskeletal: Back:Lumbar, Tender Psychiatric: Normal Mood Description: Anxious Affect: Anxious Speech Pattern: Clear, Appropriate - Laboratory and Diagnostics Result Diagrams: 07/22/18 04:29 07/22/18 11:37 Labs: Laboratory WBC 7.0 X10^3/uL (3.6-10.0) 07/22/18 04:29 RBC 4.43 X10^6/uL (3.5-5.4) 07/22/18 04:29 Hgb 13.6 g/dL (12.0-16.0) 07/22/18 04:29 Hct 40.5 % (36.0-47.0) 07/22/18 04:29 MCV 91.3 fL (80.0-100.0) 07/22/18 04:29 MCH 30.8 pg (27.0-34.0) 07/22/18 04:29 MCHC 33.7 g/dL (33.0-35.0) 07/22/18 04: RDW 13.5 % (11.6-16.5) 07/22/18 04:29 Plt Count 455 X10^3/uL (150.0-450.0) H 07/22/18 04:29 MPV 8.0 fL (7.4-11.0) 07/22/18 04:29 Neut % (Auto) 44.5 % (42.0-75.0) 07/22/18 04:29 Lymph % (Auto) 43.3 % (21.0-51.0) 07/22/18 04:29 [place] % (Auto) 9.9 % (0.0-13.0) 07/22/18 04:29 Eos % (Auto) 1.5 % (0.9-2.9) 07/22/18 04:29 Baso % (Auto) 0.8 % (0.2-1.0) 07/22/18 04:29 Neut # (Auto) 3.1 x10^3/uL (2.2-4.8) 07/22/18 04:29 Lymph # (Auto) 3.0 X10^3/uL (1.3-2.9) H 07/22/18 04:29 [place] # (Auto) 0.7 x10^3/uL (0.3-0.8) 07/22/18 04:29 Eos # (Auto) 0.1 x10^3/uL (0.0-0.2) 07/22/18 04:29 Baso # (Auto) 0.1 X10^3/uL (0.0-0.1) 07/22/18 04:29 Absolute Nucleated RBC 0.2 /100WBC 07/22/18 04:29 INR Target Range - 07/22/18 04: INR 1.07 (0.8-1.3) 07/22/18 04:29 Sample Site Lbra 07/21/18 23:03 ABG pH 7.430 (7.35-7.45) 07/21/18 23:03 ABG pCO2 54.0 mmHg (35.0-45.0) H* 07/21/18 23:03 ABG pO2 106.0 mmHg (80.0-100.0) H 07/21/18 23:03 ABG HCO3 35.8 mmol/L (22-26) H* 07/21/18 23:03 ABG O2 Saturation 98.0 % (90-100) 07/21/18 23:03 ABG Base Excess 9.7 mmol/L (-2.0-2.0) H 07/21/18 23:03 Jeffery Test N/a 07/21/18 23:03 A-a Gradient 26.0 mmHg 07/21/18 23:03 FiO2 28.0 07/21/18 23:03 Blood Gas Comments Pt cherri well elj 07/21/18 23:03 Sodium 139 mmol/L (136-145) 07/22/18 04:29 Corrected Sodium TNP 07/22/18 04:29 Potassium 4.6 mmol/L (3.5-5.1) 07/22/18 11:37 Chloride 97 mmol/L (98-107) L 07/22/18 04:29 Carbon Dioxide 32.9 mmol/L (21-32) H 07/22/18 04:29 BUN 16 mg/dL (7-18) 07/22/18 04:29 Creatinine 0.81 mg/dL (0.55-1.02) 07/22/18 04:29 Est GFR (MDRD) Af Amer > 60 (>60) 07/22/18 04:29 Est GFR (MDRD) Non-Af > 60 (>60) 07/22/18 04:29 Glucose 77 mg/dL (65-99) 07/22/18 04:29 Calcium 9.0 mg/dL (8.5-10.1) 07/22/18 04:29 Corrected Calcium TNP 07/22/18 04:29 Magnesium 1.9 mg/dL (1.7-2.9) 07/21/18 19:26 Total Bilirubin 0.40 mg/dL (0.2-1.0) 07/22/18 04:29 AST 23 Units/L (15-37) 07/22/18 04:29 ALT 15 Units/L (12-78) 07/22/18 04:29 Alkaline Phosphatase 74 Units/L (46-116) 07/22/18 04:29 Total Protein 8.0 g/dL (6.4-8.2) 07/22/18 04:29 Albumin 4.0 g/dL (3.4-5.0) 07/22/18 04:29 Globulin 4.0 g/dL (2.5-4.5) 07/22/18 04:29 Albumin/Globulin Ratio 1.0 Ratio (1.1-2.1) L 07/22/18 04:29 Specimen Type Clean catch urine 07/22/18 05:17 Urine Color Yellow (YELLOW) 07/22/18 05:17 Urine Appearance Clear (CLEAR) 07/22/18 05:17 Urine pH 5.0 (5.0 - 8.0) 07/22/18 05:17 Ur Specific [place] 1.015 (1.000-1.030) 07/22/18 05:17 Urine Protein Negative (NEGATIVE) 07/22/18 05:17 Urine Glucose (UA) Negative (NEGATIVE) 07/22/18 05:17 Urine Ketones Negative (NEGATIVE) 07/22/18 05:17 Urine Occult Blood Negative (NEGATIVE) 07/22/18 05:17 Urine Nitrite Negative (NEGATIVE) 07/22/18 05:17 Urine Bilirubin Negative (NEGATIVE) 07/22/18 05:17 Urine Urobilinogen Normal (NORMAL) 07/22/18 05:17 Ur Leukocyte Esterase Negative (NEGATIVE) 07/22/18 05:17 - Plan (1) Dehydration Status: Acute Plan: CONTINUOUS CARDIAC MONITORING. SERIAL CE AND EKG ON ADMISSION. IV HYDRATION, CXR AND ABG ON ADMISSION. SUPPLEMENTAL O2. DUO NEBS, I & OS (2) Hypotension Status: Acute (3) Anorexia Status: Acute (4) Anxiety Status: Chronic (5) Arthritis Status: Chronic (6) CAD (coronary artery disease) Status: Chronic (7) CHF (congestive heart failure) Status: Chronic (8) COPD (chronic obstructive pulmonary disease) Status: Chronic Qualifiers: COPD type: COPD with acute exacerbation Qualified Code(s): J44.1 - Chronic obstructive pulmonary disease with (acute) exacerbation (9) Cardiac defibrillator in place Status: Chronic (10) Degenerative disc disease Status: Chronic
[2018-07-22] MEDS: ZOCOR TAB 40 MG PO SCH (21:21)
[2018-07-23] MEDS: NS 1000 ML 1,000 ML IV SCH ×2 (04:22→13:21)
[2018-07-23 05:29] LABS: BASOPHILS % (AUTO) 0.1 % (0.2-1.0); LYMPHOCYTES # (AUTO) 0.9 X10^3/uL (1.3-2.9); LYMPHOCYTES % (AUTO) 11.1 % (21.0-51.0); MEAN CORPUSCULAR HGB CONC 34.4 g/dL (33.0-35.0); MEAN CORPUSCULAR VOLUME 90.2 fL (80.0-100.0); MEAN PLATELET VOLUME 8.2 fL (7.4-11.0); MONOCYTES # (AUTO) 0.2 x10^3/uL (0.3-0.8); MONOCYTES % (AUTO) 1.9 % (0.0-13.0); NEUTROPHILS # (AUTO) 7.1 x10^3/uL (2.2-4.8); NEUTROPHILS % (AUTO) 86.9 % (42.0-75.0); PLATELET COUNT 361 X10^3/uL (150.0-450.0); RED BLOOD COUNT 3.43 X10^6/uL (3.5-5.4); RED CELL DISTRIBUTION WIDTH 13.5 % (11.6-16.5); WHITE BLOOD COUNT 8.2 X10^3/uL (3.6-10.0)
[2018-07-23 05:38] LABS: HEMOGLOBIN 10.7 g/dL (12.0-16.0)
[2018-07-23] MEDS: SOLU-Medrol 125 MG VIAL IVP SCH ×3 (05:45→21:03)
[2018-07-23 05:53] LABS: ALANINE AMINOTRANSFERASE 12 Units/L (12-78); ALBUMIN 3.1 g/dL (3.4-5.0); ALKALINE PHOSPHATASE 58 Units/L (46-116); ASPARTATE AMINO TRANSFERASE 16 Units/L (15-37); BLOOD UREA NITROGEN 17 mg/dL (7-18); CALCIUM 7.9 mg/dL (8.5-10.1); CARBON DIOXIDE 29.6 mmol/L (21-32); CHLORIDE 101 mmol/L (98-107); COR CA(FOR HYPOALB) 8.6 mg/dL (8.5-10.1); COR NA(FOR HYPERGLY) 140 mmol/L (136-145); CREATININE 0.69 mg/dL (0.55-1.02); SODIUM 139 mmol/L (136-145); TOTAL PROTEIN 6.2 g/dL (6.4-8.2); eGFR NON BLACK RACES > 60 (>60)
[2018-07-23] MEDS: K-DUR TAB 20 MEQ PO PRN (06:41)
[2018-07-23] MEDS: NEURONTIN CAP 300 MG PO SCH ×2 (08:17→20:01)
[2018-07-23] MEDS: PLAVIX PO SCH (08:17)
[2018-07-23] MEDS: ISOSORBIDE DINITRATE PO SCH ×2 (08:18→20:01)
[2018-07-23] MEDS: LASIX PO SCH ×2 (08:18→20:01)
[2018-07-23] MEDS: XANAX PO PRN ×2 (08:18→17:37)
[2018-07-23] MEDS: EFFEXOR XR 37.5 MG CAP PO SCH (08:18)
[2018-07-23] MEDS: PERCOCET TAB 5/325 MG PO SCH ×4 (08:19→21:03)
[2018-07-23] MEDS ORDERED: MYLICON TAB 80 MG CHEW PO PRN (09:33)
[2018-07-23] MEDS ORDERED: LEVSIN/MAALOX/LIDOC VISC PO PRN (09:33)
[2018-07-23] MEDS: DUONEB 0.5 MG/3 MG NEB SCH ×4 (09:40→20:33)
[2018-07-23] MEDS: PROTONIX INJ 40 MG VIAL IVP SCH (10:33)
--- NOTE | 2018-07-23 17:17 | PCM.PROG ---
Progress Note - Progress Note for Day of Date of Exam: 07/23/18 - Subjective Subjective: 63 WF ADMITTED ON 07/21 WITH CO SOB, WEAKNESS, CAMPOS, HYPOTENSION AND ANOREXIA. PT HAS HX OF RESP FAILURE. CURRENTLY ON RESP THERAPY, SINCE ADMISSION BP HAS BEEN STABLE. WE HAVE PT ON GENTLE IV HYDRATION AND SUPPLEMENTAL O2. ENCOURAGED ORAL HYDRATION AND PT. PT IS CO PAIN ALL OVER, ASKING FOR MORE PAIN MEDICATION. WE DISCUSSED THE RISK OF RESPIRATORY SUPPRESSION DUE TO OPIOID PAIN CONTROL. PT ASKING TO "BE COMFORTABLE" WE DISCUSSED OPTIONS FOR HOME HOSPICE. PLAN TO MEET WITH PT AND FAMILY IN THE AM TO DISCUSS PLAN OF CARE ON DISCHARGE. - Past Medical Family Social History Past Med/Fam/Surg Hx: No changes since H&P Allergies: Allergies No Known Drug Allergies Allergy (Verified 09/29/17 13:37) - Review of Systems ROS: No change since H&P - Vital Signs and I&O's Vital Signs: Temperature 98.5 F Pulse Rate [Right Brachial] 112 Pulse Rate 89 Respiratory Rate 20 Blood Pressure [Left Arm] 140/75 Blood Pressure [Right Arm] 126/62 Blood Pressure 97/51 O2 Sat by Pulse Oximetry 98 Intake and Output: Intake & Output 07/21/18 07/22/18 07/23/18 07/24/18 11:59 11:59 11:59 11:59 Intake Total 140 / 140 1780 / 1780 400 / 400 Output Total 700 / 700 Balance 140 / 140 1080 / 1080 400 / 400 - Physical Exam Oriented: Normal Eyes: Normal Ear: Normal Nose: Normal Throat: Normal Respiratory: Diminished, Wheezes Cardiovascular: Tachycardia. negative: Edema : Normal Auscultation: Bowel Sounds: Normal Tenderness: Normal Skin: Decreased Turgur Musculoskeletal: Back:Lumbar, Tender Psychiatric: Normal Mood Description: Anxious Affect: Anxious Speech Pattern: Clear, Appropriate - Laboratory and Diagnostics Result Diagrams: 07/23/18 04:19 07/23/18 08:44 Labs: Laboratory WBC 8.2 X10^3/uL (3.6-10.0) 07/23/18 04:19 RBC 3.43 X10^6/uL (3.5-5.4) L 07/23/18 04:19 Hgb 10.7 g/dL (12.0-16.0) L D 07/23/18 04:19 Hct 31.0 % (36.0-47.0) L 07/23/18 04:19 MCV 90.2 fL (80.0-100.0) 07/23/18 04:19 MCH 31.0 pg (27.0-34.0) 07/23/18 04:19 MCHC 34.4 g/dL (33.0-35.0) 07/23/18 04:19 RDW 13.5 % (11.6-16.5) 07/23/18 04:19 Plt Count 361 X10^3/uL (150.0-450.0) 07/23/18 04:19 MPV 8.2 fL (7.4-11.0) 07/23/18 04:19 Neut % (Auto) 86.9 % (42.0-75.0) H 07/23/18 04:19 Lymph % (Auto) 11.1 % (21.0-51.0) L 07/23/18 04:19 Mcdowell % (Auto) 1.9 % (0.0-13.0) 07/23/18 04:19 Eos % (Auto) 0.0 % (0.9-2.9) L 07/23/18 04:19 Baso % (Auto) 0.1 % (0.2-1.0) L 07/23/18 04:19 Neut # (Auto) 7.1 x10^3/uL (2.2-4.8) H 07/23/18 04:19 Lymph # (Auto) 0.9 X10^3/uL (1.3-2.9) L 07/23/18 04:19 Mcdowell # (Auto) 0.2 x10^3/uL (0.3-0.8) L 07/23/18 04:19 Eos # (Auto) 0.0 x10^3/uL (0.0-0.2) 07/23/18 04:19 Baso # (Auto) 0.0 X10^3/uL (0.0-0.1) 07/23/18 04:19 Absolute Nucleated RBC 0.0 /100WBC 07/23/18 04:19 INR Target Range - 07/22/18 04:29 INR 1.07 (0.8-1.3) 07/22/18 04:29 Sample Site Lbra 04/16/19 23:03 ABG pH 7.430 (7.35-7.45) 07/21/18 23:03 ABG pCO2 54.0 mmHg (35.0-45.0) H* 07/21/18 23:03 ABG pO2 106.0 mmHg (80.0-100.0) H 07/21/18 23:03 ABG HCO3 35.8 mmol/L (22-26) H* 07/21/18 23:03 ABG O2 Saturation 98.0 % (90-100) 07/21/18 23:03 ABG Base Excess 9.7 mmol/L (-2.0-2.0) H 07/21/18 23:03 Jeffery Test N/a 07/21/18 23:03 A-a Gradient 26.0 mmHg 07/21/18 23:03 FiO2 28.0 07/21/18 23:03 Blood Gas Comments Pt cherri well elj 07/21/18 23:03 Sodium 139 mmol/L (136-145) 07/23/18 04:19 Corrected Sodium 140 mmol/L (136-145) 07/23/18 04:19 Potassium 3.3 mmol/L (3.5-5.1) L 07/23/18 08:44 Chloride 101 mmol/L (98-107) 07/23/18 04:19 Carbon Dioxide 29.6 mmol/L (21-32) 07/23/18 04:19 BUN 17 mg/dL (7-18) 07/23/18 04:19 Creatinine 0.69 mg/dL (0.55-1.02) 07/23/18 04:19 Est GFR (MDRD) Af Amer > 60 (>60) 07/23/18 04:19 Est GFR (MDRD) Non-Af > 60 (>60) 07/23/18 04:19 Glucose 129 mg/dL (65-99) H 07/23/18 04:19 Calcium 7.9 mg/dL (8.5-10.1) L 07/23/18 04:19 Corrected Calcium 8.6 mg/dL (8.5-10.1) 07/23/18 04:19 Magnesium 1.9 mg/dL (1.7-2.9) 04/16/19 19:26 Total Bilirubin 0.20 mg/dL (0.2-1.0) 07/23/18 04:19 AST 16 Units/L (15-37) 07/23/18 04:19 ALT 12 Units/L (12-78) 07/23/18 04:19 Alkaline Phosphatase 58 Units/L (46-116) 07/23/18 04:19 Total Protein 6.2 g/dL (6.4-8.2) L 07/23/18 04:19 Albumin 3.1 g/dL (3.4-5.0) L 07/23/18 04:19 Globulin 3.1 g/dL (2.5-4.5) 07/23/18 04:19 Albumin/Globulin Ratio 1.0 Ratio (1.1-2.1) L 07/23/18 04:19 Specimen Type Clean catch urine 07/22/18 05:17 Urine Color Yellow (YELLOW) 07/22/18 05:17 Urine Appearance Clear (CLEAR) 07/22/18 05:17 Urine pH 5.0 (5.0 - 8.0) 07/22/18 05:17 Ur Specific [place] 1.015 (1.000-1.030) 07/22/18 05:17 Urine Protein Negative (NEGATIVE) 07/22/18 05:17 Urine Glucose (UA) Negative (NEGATIVE) 07/22/18 05:17 Urine Ketones Negative (NEGATIVE) 07/22/18 05:17 Urine Occult Blood Negative (NEGATIVE) 07/22/18 05:17 Urine Nitrite Negative (NEGATIVE) 07/22/18 05:17 Urine Bilirubin Negative (NEGATIVE) 07/22/18 05:17 Urine Urobilinogen Normal (NORMAL) 07/22/18 05:17 Ur Leukocyte Esterase Negative (NEGATIVE) 07/22/18 05:17 - Plan (1) Dehydration Status: Acute Plan: CONTINUOUS CARDIAC MONITORING. SERIAL CE AND EKG ON ADMISSION. IV HYDRATION, CXR AND ABG ON ADMISSION. SUPPLEMENTAL O2. DUO NEBS, I & OS (2) Hypotension Status: Acute (3) Anorexia Status: Acute (4) Anxiety Status: Chronic (5) Arthritis Status: Chronic (6) CAD (coronary artery disease) Status: Chronic (7) CHF (congestive heart failure) Status: Chronic (8) COPD (chronic obstructive pulmonary disease) Status: Chronic Qualifiers: COPD type: COPD with acute exacerbation Qualified Code(s): J44.1 - Chronic obstructive pulmonary disease with (acute) exacerbation (9) Cardiac defibrillator in place Status: Chronic (10) Degenerative disc disease Status: Chronic (11) Adult failure to thrive Status: Acute
[2018-07-23] MEDS: ZOCOR TAB 40 MG PO SCH (20:02)
[2018-07-23] MEDS ORDERED: COUMADIN TAB 3 MG PO SCH (21:00)
[2018-07-24] MEDS: NS 1000 ML 1,000 ML IV SCH (02:42)
[2018-07-24] MEDS: PERCOCET TAB 5/325 MG PO SCH (03:05)
[2018-07-24] MEDS: SOLU-Medrol 125 MG VIAL IVP SCH (05:02)
[2018-07-24 05:03] LABS: BASOPHILS % (AUTO) 0.1 % (0.2-1.0); HEMATOCRIT 29.7 % (36.0-47.0); HEMOGLOBIN 10.1 g/dL (12.0-16.0); LYMPHOCYTES # (AUTO) 0.9 X10^3/uL (1.3-2.9); LYMPHOCYTES % (AUTO) 5.1 % (21.0-51.0); MEAN CORPUSCULAR HEMOGLOBIN 31.1 pg (27.0-34.0); MEAN CORPUSCULAR HGB CONC 33.9 g/dL (33.0-35.0); MEAN CORPUSCULAR VOLUME 91.5 fL (80.0-100.0); MEAN PLATELET VOLUME 8.5 fL (7.4-11.0); MONOCYTES # (AUTO) 0.4 x10^3/uL (0.3-0.8); MONOCYTES % (AUTO) 2.2 % (0.0-13.0); NEUTROPHILS # (AUTO) 15.8 x10^3/uL (2.2-4.8); NEUTROPHILS % (AUTO) 92.6 % (42.0-75.0); PLATELET COUNT 328 X10^3/uL (150.0-450.0); RED BLOOD COUNT 3.25 X10^6/uL (3.5-5.4); RED CELL DISTRIBUTION WIDTH 13.7 % (11.6-16.5); WHITE BLOOD COUNT 17.1 X10^3/uL (3.6-10.0)
[2018-07-24 05:16] LABS: ALANINE AMINOTRANSFERASE 11 Units/L (12-78); ALKALINE PHOSPHATASE 51 Units/L (46-116); ASPARTATE AMINO TRANSFERASE 15 Units/L (15-37); BLOOD UREA NITROGEN 14 mg/dL (7-18); CARBON DIOXIDE 31.6 mmol/L (21-32); CHLORIDE 103 mmol/L (98-107); COR CA(FOR HYPOALB) 8.8 mg/dL (8.5-10.1); COR NA(FOR HYPERGLY) 142 mmol/L (136-145); CREATININE 0.73 mg/dL (0.55-1.02); SODIUM 141 mmol/L (136-145); TOTAL PROTEIN 5.9 g/dL (6.4-8.2); eGFR NON BLACK RACES > 60 (>60)
[2018-07-24 05:36] LABS: BAND NEUTROPHILS % 2 % (0-10); PLATELET MORPHOLOGY COMMENT NORMAL (NORMAL)
[2018-07-24] MEDS: NEURONTIN CAP 300 MG PO SCH (08:13)
[2018-07-24] MEDS: ISOSORBIDE DINITRATE PO SCH (08:13)
[2018-07-24] MEDS: PROTONIX INJ 40 MG VIAL IVP SCH (08:13)
[2018-07-24] MEDS: EFFEXOR XR 37.5 MG CAP PO SCH (08:13)
[2018-07-24] MEDS: PERCOCET TAB 5/325 MG PO PRN ×2 (08:14→12:04)
[2018-07-24] MEDS: LASIX PO SCH (08:14)
[2018-07-24] MEDS: PLAVIX PO SCH (08:15)
[2018-07-24] MEDS: DUONEB 0.5 MG/3 MG NEB SCH (08:35)
[2018-07-24] MEDS: XANAX PO PRN (10:53)
[2018-07-24 12:07] VITALS: BP 140/67
== END 2018-07-24 13:08 | disposition home or self-care (01) ==
LOC: MED/SURG
PROVIDERS: ADMIT Internal Medicine; ATTEND Internal Medicine
DX: Z95.0 Presence of cardiac pacemaker; R26.89 Other abnormalities of gait and mobility; E86.0 Dehydration; M13.89 Other specified arthritis, multiple sites; Z79.01 Long term (current) use of anticoagulants; R63.4 Abnormal weight loss; R53.1 Weakness; J96.10 Chronic respiratory failure, unspecified whether with hypoxia or hypercapnia; I95.89 Other hypotension; J44.1 Chronic obstructive pulmonary disease with (acute) exacerbation; I50.9 Heart failure, unspecified; I25.10 Atherosclerotic heart disease of native coronary artery without angina pectoris; R62.7 Adult failure to thrive; F41.8 Other specified anxiety disorders
CPT/HCPCS: 36415; 36600; 71010; 71045; 80053; 81003; 82803; 83735; 84132; 85025; 85610; 94640; 94760; 96367; 96374; 97110; 97112; 97162; 97166; 97535; A4222; C9113; G0378; J2930; J7030; J7613; J7620